=== PATIENT | female | born 1985 | race Caucasian/White ===

== ENCOUNTER → 2016-12-01 | Outpatient (CLI) | payer MEDICAID | LOC: LAB 13:48 | DX: N76.4 Abscess of vulva (principal) ==

== ENCOUNTER 2017-01-11 10:58 | Inpatient (IN) | payer MEDICAID ==
[~2017-01-11] VITALS: Ht 162.6 cm; Wt 117.0 kg
[~2017-01-11 10:58] MED LIST: AVPAK AZITHROM250 MG PO; KEFLEX 500MG.500 MG PO; OMNICEF 300 MG300 MG PO; PREDNISONE20 MG PO; PROMETHAZINE D180 ML PO; TYLENOL W/CODEI1 TA2 PO; ZITHROMAX Z-PA250 M1 PO
--- OUTSIDE RECORDS SUMMARY | 2017-01-11 11:04 | External Medical Summary Rpt | CCD ---
Author Author , JENNY Organization JENNY Address Unknown Phone [email or web address] Purpose Continuity of Care Document - 12-18-2011 through 2016 Results Labs Lab Lab Date Result Refere Interp Status Commen Order Detail nces retati t Range on Basic metabolic panel (01-02-2017 11:40) Serum 01-02-2 = 3.9 3.5-5.1 complet potassi 017 mmoL/L ed um 11:40 measure ment Serum = 94 74-106 complet or 017 mg/dL ed plasma 11:40 glucose measure ment (mas Estimat = 97 59- complet ed 017 ML/MIN ed glomeru 11:40 lar filtrat ion rate (GF Comment: REFERENCE RANGE: >60 ML/MIN/1.73 SQUARE METERS Comment: If this patient is -Citizen Of The [place], then multiply the Comment: result by 1.210. Serum 2 = 0.7 0.55-1. complet or 017 mg/dL 02 ed plasma 11:40 creatin ine measure ment ( Carbon 2 = 27 21.0-32 complet dioxide 017 mmoL/L .0 ed 11:40 measure ment Serum 2 = 103 98-107 complet or 017 mmoL/L ed plasma 11:40 chlorid e measure ment (mo Serum 01-02-2 = 8.7 8.5-10. complet or 017 mg/dL 1 ed plasma 11:40 calcium measure ment (mas Serum 01-02-2 = 6 7-18 complet or 017 mg/dL ed plasma 11:40 urea nitroge n measure men Serum = 137 136-145 complet sodium 017 mmoL/L ed measure 11:40 ment CBC W DIFF AUTOMATED (12-23-2011 06:31) Manual NOT complet Diff 012 INDICAT ed 06:31 ED BA# 12-22-2 0.04 0.00 - complet 012 K/uL 0.20 ed 06:31 EO# 10-20-2 0.42 0.00 - complet 012 K/uL 0.70 ed 06:31 NE# 10-20-2 3.68 2.00 - complet 012 K/uL 6.90 ed 06:31 MO# 10-20-2 0.44 0.00 - complet 012 K/uL 0.90 ed 06:31 LY# 10-20-2 3.89 0.60 - Above complet 012 K/uL 3.40 high ed 06:31 normal BA% 10-20-2 0.50 % 0.00 - complet 012 2.50 ed 06:31 EO% 10-20-2 5.00 % 0.00 - complet 012 7.00 ed 06:31 NE% 10-20-2 43.4 % 37.0 - complet 012 80.0 ed 06:31 MO% 10-20-2 5.2 % 0.0 - complet 012 12.0 ed 06:31 LY% 10-20-2 45.9 % 10.0 - complet 012 50.0 ed 06:31 PLT 10-20-2 196 142 - complet 012 K/uL 424 ed 06:31 RDW 10-20-2 12.1 % 11.60 - complet 012 14.80 ed 06:31 MCHC 10-20-2 34.0 31.80 - complet 012 g/dL 35.40 ed 06:31 MCH 10-20-2 32.0 pg 27.0 - Above complet 012 31.20 high ed 06:31 normal MCV 10-20-2 94.3 fL 80.0 - complet 012 97.0 ed 06:31 HCT 10-20-2 41 % 37.70 - complet 012 53.70 ed 06:31 HGB 10-20-2 14.0 12.20 - complet 012 g/dL 18.10 ed 06:31 RBC 10-20-2 4.37 4.04 - complet 012 M/uL 6.13 ed 06:31 WBC 10-20-2 8.5 4.60 - complet 012 K/uL 10.20 ed 06:31 CBC W DIFF AUTOMATED (12-23-2011 06:31) Leukocy 10-20-2 8.5 4.60 - complet emiliana 012 K/uL 10.20 ed [#/volu 06:31 me] in Blood by Automat ed count Erythro 10-20-2 4.37 4.04 - complet cytes 012 M/uL 6.13 ed [#/volu 06:31 me] in Blood by Automat ed count Hemoglo 12-22- 14.0 12.20 - complet bin 012 g/dL 18.10 ed [Mass/v 06:31 olume] in Blood Hematoc 12-22- 41 % 37.70 - complet rit 012 53.70 ed [Volume 06:31 Fractio n] of Blood by Automat ed count Erythro 94.3 fL 80.0 - complet cyte 012 97.0 ed mean 06:31 corpusc ular volume [Entiti c volume] by Automat ed count Erythro 32.0 pg 27.0 - High complet cyte 012 31.20 ed mean 06:31 corpusc ular hemoglo bin [Entiti c mass] by Automat ed count Erythro 34.0 31.80 - complet cyte 012 g/dL 35.40 ed mean 06:31 corpusc ular hemoglo bin concent ration [Mass/v olume] by Automat ed count Erythro 12.1 % 11.60 - complet cyte 012 14.80 ed distrib 06:31 ution width [Ratio] by Automat ed count Platele 196 142 - complet ts 012 K/uL 424 ed [#/volu 06:31 me] in Blood by Automat ed count Lymphoc 45.9 % 10.0 - complet ytes/10 012 50.0 ed 0 06:31 leukocy emiliana in Blood by Automat ed count Monocyt 5.2 % 0.0 - complet es/100 012 12.0 ed leukocy 06:31 emiliana in Blood by Automat ed count Neutrop 43.4 % 37.0 - complet hils.ba 012 80.0 ed nd 06:31 form/10 0 leukocy emiliana in Blood by Manual count Eosinop 5.00 % 0.00 - complet hils/10 012 7.00 ed 0 06:31 leukocy emiliana in Blood by Automat ed count Basophi 0.50 % 0.00 - complet ls/100 012 2.50 ed leukocy 06:31 emiliana in Blood by Automat ed count Lymphoc 3.89 0.60 - High complet ytes/10 012 K/uL 3.40 ed 0 06:31 leukocy emiliana in Blood by Automat ed count Monocyt 0.44 0.00 - complet es/100 012 K/uL 0.90 ed leukocy 06:31 emiliana in Blood by Automat ed count Neutrop 3.68 2.00 - complet hils.ba 012 K/uL 6.90 ed nd 06:31 form/10 0 leukocy emiliana in Blood by Manual count Eosinop 0.42 0.00 - complet hils/10 012 K/uL 0.70 ed 0 06:31 leukocy emiliana in Blood by Automat ed count Basophi 0.04 0.00 - complet ls/100 012 K/uL 0.20 ed leukocy 06:31 emiliana in Blood by Automat ed count Manual NOT complet Diff 012 INDICAT ed 06:31 ED VANCOMYCIN TROUGH (12-21-2011 12:20) POTENTI complet 012 ALLY ed 12:20 TOXIC RANGE: >60.0 ug/mL Peak: complet 012 25.0-40 ed 12:20 .0 ug/mL Trough: complet 012 ed 12:20 0.0-20. 0 ug/mL Therape complet 012 utic ed 12:20 range: LAST complet 012 DOSE ed 12:20 DATE/TI ME ____ VANCOMY 14.0 1.0 - complet SHANDRA TR 012 ug/mL 20.0 ed 12:20 VANCOMYCIN TROUGH (12-21-2011 12:20) VANCOMY 14.0 1.0 - complet SHANDRA TR 012 ug/mL 20.0 ed 12:20 LAST complet 012 DOSE ed 12:20 DATE/TI ME ____ Therape complet 012 utic ed 12:20 range: 10-18-2 Trough: complet 012 ed 12:20 0.0-20. 0 ug/mL 10-18-2 Peak: complet 012 25.0-40 ed 12:20 .0 ug/mL 10-18-2 POTENTI complet 012 ALLY ed 12:20 TOXIC RANGE: >60.0 ug/mL CBC W DIFF AUTOMATED (12-21-2011 06:00) Manual 10-18-2 NOT complet Diff 012 INDICAT ed 06:00 ED BA# 10-18-2 0.05 0.00 - complet 012 K/uL 0.20 ed 06:00 EO# 10-18-2 0.53 0.00 - complet 012 K/uL 0.70 ed 06:00 NE# 10-18-2 4.13 2.00 - complet 012 K/uL 6.90 ed 06:00 MO# 10-18-2 0.59 0.00 - complet 012 K/uL 0.90 ed 06:00 LY# 10-18-2 3.96 0.60 - Above complet 012 K/uL 3.40 high ed 06:00 normal BA% 10-18-2 0.50 % 0.00 - complet 012 2.50 ed 06:00 EO% 10-18-2 5.70 % 0.00 - complet 012 7.00 ed 06:00 NE% 10-18-2 44.6 % 37.0 - complet 012 80.0 ed 06:00 MO% 10-18-2 6.4 % 0.0 - complet 012 12.0 ed 06:00 LY% 10-18-2 42.8 % 10.0 - complet 012 50.0 ed 06:00 PLT 10-18-2 209 142 - complet 012 K/uL 424 ed 06:00 RDW 10-18-2 12.1 % 11.60 - complet 012 14.80 ed 06:00 MCHC 10-18-2 33.9 31.80 - complet 012 g/dL 35.40 ed 06:00 MCH 10-18-2 31.8 pg 27.0 - Above complet 012 31.20 high ed 06:00 normal MCV 10-18-2 93.9 fL 80.0 - complet 012 97.0 ed 06:00 HCT 10-18-2 43 % 37.70 - complet 012 53.70 ed 06:00 HGB 10-18-2 14.7 12.20 - complet 012 g/dL 18.10 ed 06:00 RBC 4.62 4.04 - complet 012 M/uL 6.13 ed 06:00 WBC 9.3 4.60 - complet 012 K/uL 10.20 ed 06:00 CBC W DIFF AUTOMATED (12-21-2011 06:00) Leukocy 9.3 4.60 - complet emiliana 012 K/uL 10.20 ed [#/volu 06:00 me] in Blood by Automat ed count Erythro 4.62 4.04 - complet cytes 012 M/uL 6.13 ed [#/volu 06:00 me] in Blood by Automat ed count Hemoglo 14.7 12.20 - complet bin 012 g/dL 18.10 ed [Mass/v 06:00 olume] in Blood Hematoc 43 % 37.70 - complet rit 012 53.70 ed [Volume 06:00 Fractio n] of Blood by Automat ed count Erythro 93.9 fL 80.0 - complet cyte 012 97.0 ed mean 06:00 corpusc ular volume [Entiti c volume] by Automat ed count Erythro 31.8 pg 27.0 - High complet cyte 012 31.20 ed mean 06:00 corpusc ular hemoglo bin [Entiti c mass] by Automat ed count Erythro 33.9 31.80 - complet cyte 012 g/dL 35.40 ed mean 06:00 corpusc ular hemoglo bin concent ration [Mass/v olume] by Automat ed count Erythro 12.1 % 11.60 - complet cyte 012 14.80 ed distrib 06:00 ution width [Ratio] by Automat ed count Platele 209 142 - complet ts 012 K/uL 424 ed [#/volu 06:00 me] in Blood by Automat ed count Lymphoc 42.8 % 10.0 - complet ytes/10 012 50.0 ed 0 06:00 leukocy emiliana in Blood by Automat ed count Monocyt 6.4 % 0.0 - complet es/100 012 12.0 ed leukocy 06:00 emiliana in Blood by Automat ed count Neutrop 44.6 % 37.0 - complet hils.ba 012 80.0 ed nd 06:00 form/10 0 leukocy emiliana in Blood by Manual count Eosinop 5.70 % 0.00 - complet hils/10 012 7.00 ed 0 06:00 leukocy emiliana in Blood by Automat ed count Basophi 0.50 % 0.00 - complet ls/100 012 2.50 ed leukocy 06:00 emiliana in Blood by Automat ed count Lymphoc 3.96 0.60 - High complet ytes/10 012 K/uL 3.40 ed 0 06:00 leukocy emiliana in Blood by Automat ed count Monocyt 0.59 0.00 - complet es/100 012 K/uL 0.90 ed leukocy 06:00 emiliana in Blood by Automat ed count Neutrop 4.13 2.00 - complet hils.ba 012 K/uL 6.90 ed nd 06:00 form/10 0 leukocy emiliana in Blood by Manual count Eosinop 0.53 0.00 - complet hils/10 012 K/uL 0.70 ed 0 06:00 leukocy emiliana in Blood by Automat ed count Basophi 0.05 0.00 - complet ls/100 012 K/uL 0.20 ed leukocy 06:00 emiliana in Blood by Automat ed count Manual NOT complet Diff 012 INDICAT ed 06:00 ED VANCOMYCIN TROUGH (12-19-2011 14:30) POTENTI complet 012 ALLY ed 14:30 TOXIC RANGE: >60.0 ug/mL Peak: complet 012 25.0-40 ed 14:30 .0 ug/mL Trough: complet 012 ed 14:30 0.0-20. 0 ug/mL Therape complet 012 utic ed 14:30 range: LAST complet 012 DOSE ed 14:30 DATE/TI ME ____ VANCOMY -16-2 8.5 1.0 - complet SHANDRA TR 012 ug/mL 20.0 ed 14:30 VANCOMYCIN TROUGH (12-19-2011 14:30) VANCOMY -16-2 8.5 1.0 - complet SHANDRA TR 012 ug/mL 20.0 ed 14:30 12-18-2 LAST complet 012 DOSE ed 14:30 DATE/TI ME ____ 12-18-2 Therape complet 012 utic ed 14:30 range: Trough: complet 012 ed 14:30 0.0-20. 0 ug/mL Peak: complet 012 25.0-40 ed 14:30 .0 ug/mL 12-18- POTENTI complet 012 ALLY ed 14:30 TOXIC RANGE: >60.0 ug/mL CBC W DIFF AUTOMATED (12-19-2011 06:10) Manual NOT complet Diff 012 INDICAT ed 06:10 ED BA# 10-16-2 0.03 0.00 - complet 012 K/uL 0.20 ed 06:10 EO# 10-16-2 0.49 0.00 - complet 012 K/uL 0.70 ed 06:10 NE# 10-16-2 4.81 2.00 - complet 012 K/uL 6.90 ed 06:10 MO# 10-16-2 0.59 0.00 - complet 012 K/uL 0.90 ed 06:10 LY# 10-16-2 3.72 0.60 - Above complet 012 K/uL 3.40 high ed 06:10 normal BA% 16-2 0.30 % 0.00 - complet 012 2.50 ed 06:10 EO% 10-16-2 5.10 % 0.00 - complet 012 7.00 ed 06:10 NE% 10-16-2 49.9 % 37.0 - complet 012 80.0 ed 06:10 MO% 10-16-2 6.1 % 0.0 - complet 012 12.0 ed 06:10 LY% 10-16-2 38.6 % 10.0 - complet 012 50.0 ed 06:10 PLT 1016-2 171 142 - complet 012 K/uL 424 ed 06:10 RDW 12-18-2 12.5 % 11.60 - complet 012 14.80 ed 06:10 MCHC 12-18- 34.0 31.80 - complet 012 g/dL 35.40 ed 06:10 MCH 12-18- 32.2 pg 27.0 - Above complet 012 31.20 high ed 06:10 normal MCV 94.7 fL 80.0 - complet 012 97.0 ed 06:10 HCT 42 % 37.70 - complet 012 53.70 ed 06:10 HGB 14.1 12.20 - complet 012 g/dL 18.10 ed 06:10 RBC 4.38 4.04 - complet 012 M/uL 6.13 ed 06:10 WBC 12-18- 9.6 4.60 - complet 012 K/uL 10.20 ed 06:10 CBC W DIFF AUTOMATED (12-19-2011 06:10) Leukocy 12-18- 9.6 4.60 - complet emiliana 012 K/uL 10.20 ed [#/volu 06:10 me] in Blood by Automat ed count Erythro 12-18- 4.38 4.04 - complet cytes 012 M/uL 6.13 ed [#/volu 06:10 me] in Blood by Automat ed count Hemoglo 14.1 12.20 - complet bin 012 g/dL 18.10 ed [Mass/v 06:10 olume] in Blood Hematoc 42 % 37.70 - complet rit 012 53.70 ed [Volume 06:10 Fractio n] of Blood by Automat ed count Erythro 94.7 fL 80.0 - complet cyte 012 97.0 ed mean 06:10 corpusc ular volume [Entiti c volume] by Automat ed count Erythro 12-18- 32.2 pg 27.0 - High complet cyte 012 31.20 ed mean 06:10 corpusc ular hemoglo bin [Entiti c mass] by Automat ed count Erythro 12-18- 34.0 31.80 - complet cyte 012 g/dL 35.40 ed mean 06:10 corpusc ular hemoglo bin concent ration [Mass/v olume] by Automat ed count Erythro 12.5 % 11.60 - complet cyte 012 14.80 ed distrib 06:10 ution width [Ratio] by Automat ed count Platele 171 142 - complet ts 012 K/uL 424 ed [#/volu 06:10 me] in Blood by Automat ed count Lymphoc 38.6 % 10.0 - complet ytes/10 012 50.0 ed 0 06:10 leukocy emiliana in Blood by Automat ed count Monocyt 6.1 % 0.0 - complet es/100 012 12.0 ed leukocy 06:10 emiliana in Blood by Automat ed count Neutrop 49.9 % 37.0 - complet hils.ba 012 80.0 ed nd 06:10 form/10 0 leukocy emiliana in Blood by Manual count Eosinop 5.10 % 0.00 - complet hils/10 012 7.00 ed 0 06:10 leukocy emiliana in Blood by Automat ed count Basophi 0.30 % 0.00 - complet ls/100 012 2.50 ed leukocy 06:10 emiliana in Blood by Automat ed count Lymphoc 3.72 0.60 - High complet ytes/10 012 K/uL 3.40 ed 0 06:10 leukocy emiliana in Blood by Automat ed count Monocyt 0.59 0.00 - complet es/100 012 K/uL 0.90 ed leukocy 06:10 emiliana in Blood by Automat ed count Neutrop 4.81 2.00 - complet hils.ba 012 K/uL 6.90 ed nd 06:10 form/10 0 leukocy emiliana in Blood by Manual count Eosinop 0.49 0.00 - complet hils/10 012 K/uL 0.70 ed 0 06:10 leukocy emiliana in Blood by Automat ed count Basophi 0.03 0.00 - complet ls/100 012 K/uL 0.20 ed leukocy 06:10 emiliana in Blood by Automat ed count Manual NOT complet Diff 012 INDICAT ed 06:10 ED HCG URINE QUAL (12-18-2011 03:52) 10 HCG complet 012 serum ed 03:52 test. advisab complet 012 le, the ed 03:52 test result should be confirm ed using a quantit ative -15-2 and complet 012 tested ed 03:52 after 48 hours. If waiting 48 hours is not medical ly diagnos complet 012 is of ed 03:52 pregnan cy. A second specime n may need to be obtaine d NOTE: A complet 012 urine ed 03:52 HCG reporte d as Positiv e, <25 mIU/ml is not a definit ayan BETA 10-15-2 NEGATIV NL: complet HCG (U) 012 E ATIVE NEGATIV ed 03:52 E Choriogonadotropin ( test) [Presence] in Urine (12-18-2011 03:52) BETA -- NEGATIV NL: complet HCG (U) 012 E NEGATIV ed 03:52 E -- NOTE: A complet 012 urine ed 03:52 HCG reporte d as Positiv e, <25 mIU/ml is not a definit ayan diagnos complet 012 is of ed 03:52 pregnan cy. A second specime n may need to be obtaine d and complet 012 tested ed 03:52 after 48 hours. If waiting 48 hours is not medical ly advisab complet 012 le, the ed 03:52 test result should be confirm ed using a quantit ative HCG complet 012 serum ed 03:52 test. CULTURE BLOOD (12-18-2011 02:59) RESULT complet 012 ed 02:59 STATUS complet 012 ed 02:59 ======= complet 012 ======= ed 02:59 ======= =FOLLOW ING RESULTS REPORTE D IN ERROR== ======= ======= ======= SEND YES complet PHARM/I 012 ed C 02:59 RESULT NO complet 012 GROWTH ed 02:59 @5 D STATUS FINAL complet 012 ed 02:59 _CULTUR complet 012 E,BLOOD ed 02:59 _ complet 012 ed 02:59 COR RECTED REPORT* BASIC METABOLIC PANEL BMP (12-18-2011 02:59) *GFR complet 012 only ed 02:59 applies to adults over the age 18. -- If complet 012 patient ed 02:59 is Debbie n, multipl y GFR by 1.120. Normal complet 012 Range: ed 02:59 60 Ml/min/ 1.73 sq meters GLOMERU complet 012 LAR ed 02:59 FILTRAT ION RATE INTERPR ETATION OSMOLAL 278 - 272 - complet ITY 012 295 295 ed 02:59 BUN/CRE 12-17- 10 6 - 25 complet RATIO 012 ratio ed 02:59 CALCIUM 12-17- 9.4 8.50 - complet 012 mg/dl 10.10 ed 02:59 GFR 12-17- 60 complet 012 ml/min ed 02:59 AGE 10-15- 27 yrs complet 012 ed 02:59 CREATIN 12-17-2 0.9 0.60 - complet INE 012 mg/dl 1.30 ed 02:59 BUN 12-17- 9 mg/dl 7 - 18 complet 012 ed 02:59 GLUCOSE 12-17- 99 70 - complet 012 mg/dl 120 ed 02:59 ANION 12-17-2 13 5 - 15 complet GAP 012 mmol/L ed 02:59 TOTAL 12-17- 28 21 - 32 complet CO2 012 mmol/L ed 02:59 CHLORID 12-17- 103 98 - complet E 012 mmol/L 107 ed 02:59 POTASSI 12-17-2 3.6 3.50 - complet UM 012 mmol/L 5.10 ed 02:59 SODIUM 12-17- 140 136 - complet 012 mmol/L 145 ed 02:59 CBC W DIFF AUTOMATED (12-18-2011 02:59) Manual NOT complet Diff 012 INDICAT ed 02:59 ED BA# 10-15-2 0.02 0.00 - complet 012 K/uL 0.20 ed 02:59 EO# 10-15-2 0.47 0.00 - complet 012 K/uL 0.70 ed 02:59 NE# 10-15-2 5.12 2.00 - complet 012 K/uL 6.90 ed 02:59 MO# 10-15-2 0.65 0.00 - complet 012 K/uL 0.90 ed 02:59 LY# 10-15-2 3.58 0.60 - Above complet 012 K/uL 3.40 high ed 02:59 normal BA% 10-15-2 0.20 % 0.00 - complet 012 2.50 ed 02:59 EO% 10-15-2 4.80 % 0.00 - complet 012 7.00 ed 02:59 NE% 10-15-2 52.0 % 37.0 - complet 012 80.0 ed 02:59 MO% 10-15-2 6.6 % 0.0 - complet 012 12.0 ed 02:59 LY% 10-15-2 36.4 % 10.0 - complet 012 50.0 ed 02:59 PLT 10-15-2 179 142 - complet 012 K/uL 424 ed 02:59 RDW 10-15-2 12.5 % 11.60 - complet 012 14.80 ed 02:59 MCHC 10-15-2 34.9 31.80 - complet 012 g/dL 35.40 ed 02:59 MCH 10-15-2 32.7 pg 27.0 - Above complet 012 31.20 high ed 02:59 normal MCV 10-15-2 93.8 fL 80.0 - complet 012 97.0 ed 02:59 HCT 10-15-2 41 % 37.70 - complet 012 53.70 ed 02:59 HGB 10-15-2 14.3 12.20 - complet 012 g/dL 18.10 ed 02:59 RBC 10-15-2 4.37 4.04 - complet 012 M/uL 6.13 ed 02:59 WBC 10-15-2 9.8 4.60 - complet 012 K/uL 10.20 ed 02:59 CULTURE BLOOD (12-18-2011 02:59) 10-15-2 complet 012 ed 02:59 COR RECTED REPORT* _CULTUR complet 012 E,BLOOD ed 02:59 _ STATUS FINAL complet 012 ed 02:59 RESULT NO complet 012 GROWTH ed 02:59 @5 D SEND YES complet PHARM/I 012 ed C 02:59 ======= complet 012 ======= ed 02:59 ======= =FOLLOW ING RESULTS REPORTE D IN ERROR== ======= ======= ======= STATUS~ complet 012 PRELIMI ed 02:59 NA<-- *Previo usly reporte d in error s10.0444 .CAM. RESULT~ complet 012 NO~GROW ed 02:59 TH~@2<- - *Previo usly reporte d in error .0444 .CAM. Basic metabolic 2000 panel in Serum or Plasma (12-18-2011 02:59) Sodium 140 136 - complet [Moles/ 012 mmol/L 145 ed volume] 02:59 in Serum or Plasma Potassi 3.6 3.50 - complet um 012 mmol/L 5.10 ed [Moles/ 02:59 volume] in Serum or Plasma Chlorid 103 98 - complet e 012 mmol/L 107 ed [Moles/ 02:59 volume] in Serum or Plasma TOTAL 28 21 - 32 complet CO2 012 mmol/L ed 02:59 ANION 13 5 - 15 complet GAP 012 mmol/L ed 02:59 Glucose 99 70 - complet 012 mg/dl 120 ed [Mass/v 02:59 olume] in Serum or Plasma Urea 9 mg/dl 7 - 18 complet nitroge 012 ed n 02:59 [Mass/v olume] in Serum or Plasma Creatin 0.9 0.60 - complet ine 012 mg/dl 1.30 ed [Mass/v 02:59 olume] in Serum or Plasma AGE 10-15- 27 yrs complet 012 ed 02:59 GFR 60 complet 012 ml/min ed 02:59 Calcium 9.4 8.50 - complet 012 mg/dl 10.10 ed [Mass/v 02:59 olume] in Serum or Plasma BUN/CRE 10 6 - 25 complet RATIO 012 ratio ed 02:59 OSMOLAL 278 272 - complet ITY 012 -_295 295 ed 02:59 10 GLOMERU complet 012 LAR ed 02:59 FILTRAT ION RATE INTERPR ETATION Normal complet 012 Range: ed 02:59 60 Ml/min/ 1.73 sq meters If complet 012 patient ed 02:59 is Debbie n, multipl y GFR by 1.120. *GFR complet 012 only ed 02:59 applies to adults over the age 18. CBC W DIFF AUTOMATED (12-18-2011 02:59) Leukocy 9.8 4.60 - complet emiliana 012 K/uL 10.20 ed [#/volu 02:59 me] in Blood by Automat ed count Erythro 4.37 4.04 - complet cytes 012 M/uL 6.13 ed [#/volu 02:59 me] in Blood by Automat ed count Hemoglo 14.3 12.20 - complet bin 012 g/dL 18.10 ed [Mass/v 02:59 olume] in Blood Hematoc 41 % 37.70 - complet rit 012 53.70 ed [Volume 02:59 Fractio n] of Blood by Automat ed count Erythro 93.8 fL 80.0 - complet cyte 012 97.0 ed mean 02:59 corpusc ular volume [Entiti c volume] by Automat ed count Erythro 32.7 pg 27.0 - High complet cyte 012 31.20 ed mean 02:59 corpusc ular hemoglo bin [Entiti c mass] by Automat ed count Erythro 34.9 31.80 - complet cyte 012 g/dL 35.40 ed mean 02:59 corpusc ular hemoglo bin concent ration [Mass/v olume] by Automat ed count Erythro 12.5 % 11.60 - complet cyte 012 14.80 ed distrib 02:59 ution width [Ratio] by Automat ed count Platele 179 142 - complet ts 012 K/uL 424 ed [#/volu 02:59 me] in Blood by Automat ed count Lymphoc 36.4 % 10.0 - complet ytes/10 012 50.0 ed 0 02:59 leukocy emiliana in Blood by Automat ed count Monocyt 6.6 % 0.0 - complet es/100 012 12.0 ed leukocy 02:59 emiliana in Blood by Automat ed count Neutrop 52.0 % 37.0 - complet hils.ba 012 80.0 ed nd 02:59 form/10 0 leukocy emiliana in Blood by Manual count Eosinop 4.80 % 0.00 - complet hils/10 012 7.00 ed 0 02:59 leukocy emiliana in Blood by Automat ed count Basophi 0.20 % 0.00 - complet ls/100 012 2.50 ed leukocy 02:59 emiliana in Blood by Automat ed count Lymphoc 3.58 0.60 - High complet ytes/10 012 K/uL 3.40 ed 0 02:59 leukocy emiliana in Blood by Automat ed count Monocyt 0.65 0.00 - complet es/100 012 K/uL 0.90 ed leukocy 02:59 emiliana in Blood by Automat ed count Neutrop 5.12 2.00 - complet hils.ba 012 K/uL 6.90 ed nd 02:59 form/10 0 leukocy emiliana in Blood by Manual count Eosinop 0.47 0.00 - complet hils/10 012 K/uL 0.70 ed 0 02:59 leukocy emiliana in Blood by Automat ed count Basophi 0.02 0.00 - complet ls/100 012 K/uL 0.20 ed leukocy 02:59 emiliana in Blood by Automat ed count Manual NOT complet Diff 012 INDICAT ed 02:59 ED CULTURE BLOOD (12-18-2011 02:30) RESULT complet 012 ed 02:30 STATUS complet 012 ed 02:30 ======= complet 012 ======= ed 02:30 ======= =FOLLOW ING RESULTS REPORTE D IN ERROR== ======= ======= ======= SEND YES complet PHARM/I 012 ed C 02:30 RESULT NO complet 012 GROWTH ed 02:30 @5 D STATUS FINAL complet 012 ed 02:30 _CULTUR complet 012 E,BLOOD ed 02:30 _ complet 012 ed 02:30 COR RECTED REPORT* CULTURE BLOOD (12-18-2011 02:30) complet 012 ed 02:30 COR RECTED REPORT* _CULTUR complet 012 E,BLOOD ed 02:30 _ STATUS FINAL complet 012 ed 02:30 RESULT NO complet 012 GROWTH ed 02:30 @5 D SEND YES complet PHARM/I 012 ed C 02:30 ======= complet 012 ======= ed 02:30 ======= =FOLLOW ING RESULTS REPORTE D IN ERROR== ======= ======= ======= 10-15-2 STATUS~ complet 012 PRELIMI ed 02:30 NA<-- *Previo usly reporte d in error .0443 .CAM. RESULT~ complet 012 NO~GROW ed 02:30 TH~@2<- - *Previo usly reporte d in error 0443 .CAM.
--- OUTSIDE RECORDS SUMMARY | 2017-01-11 11:04 | External Medical Summary Rpt | CCD ---
Author Author , JENNY ALVARADO Address Unknown Phone [email or web address] Immunization Name Date Rout CVX Reac Dose Comm Prov Is Faci e tion ent ider Refu lity Give sed n Hep 07-1 8 999 Hist H191 No H191 B, 8-20 oric ped/ 02 al adol Info rmat ion - Sour ce Unsp ecif ied Hep 05-1 8 999 Hist H191 No H191 B, 3-20 oric ped/ 02 al adol Info rmat ion - Sour ce Unsp ecif ied Td 09-0 9 999 Hist H191 No H191 (wayne 7-19 oric lt), 99 al Info adso rmat rbed ion - Sour ce Unsp ecif ied Hep 09-0 43 999 Hist H191 No H191 B, 7-19 oric adul 99 al t Info rmat ion - Sour ce Unsp ecif ied
--- OUTSIDE RECORDS SUMMARY | 2017-01-11 11:04 | External Medical Summary Rpt | CCD ---
Author Author , JENNY ALVARADO Address Unknown Phone [email or web address] Immunization Name Date Rout CVX Reac Dose [...]
--- OUTSIDE RECORDS SUMMARY | 2017-01-11 11:04 | External Medical Summary Rpt | CCD ---
Author Author [employer] Organization [employer] Address Unknown Phone Unavailable Purpose Continuity of Care Document - through 2016
--- OUTSIDE RECORDS SUMMARY | 2017-01-11 11:04 | External Medical Summary Rpt | CCD ---
Author Author , JENNY Organization JENNY Address Unknown Phone [email or web address] Purpose Continuity of Care Document - 12-18-2011 [...] [employer] Comment: If this patient is -[place], then multiply the Comment: result by 1.210. [...]
--- OUTSIDE RECORDS SUMMARY | 2017-01-11 11:05 | External Medical Summary Rpt ---
Author Author FOZIAHUBER [employer]ellers, [employer] Address Unknown Phone Unavailable Results Basic metabolic panel in Blood Observa Value Referen Units Interpr Notes Date tion ce etation Range Urea 7 - 18 mg/dL Low No Jan 02 nitrogen informati 2016 [Mass/vol on in 11:40 AM ume] in source Serum or data Plasma Calcium 8.5 - mg/dL Normal No Jan 02 [Mass/vol 10.1 informati 2016 ume] in on in 11:40 AM Serum or source Plasma data Chloride 98 - 107 mmoL/L Normal No Jan 02 [Moles/vo informati 2016 lume] in on in 11:40 AM Serum or source Plasma data Carbon 21.0 - mmoL/L Normal No Jan 02 dioxide, 32.0 informati 2016 total on in 11:40 AM [Moles/vo source lume] in data Serum or Plasma Creatinin 0.55 - mg/dL Normal No Jan 02 e 1.02 informati 2016 [Mass/vol on in 11:40 AM ume] in source Serum or data Plasma Estimated 59- ML/MIN No REFERENCE Jan 02 informati RANGE: 2017 glomerula on in >60 11:40 AM r source ML/MIN/1. filtratio data 73 SQUARE n rate METERSIf (GF this patient is -A merican, then multiply theresult by 1.210. Glucose 74 - 106 mg/dL Normal No Jan 02 [Mass/vol informati 2016 ume] in on in 11:40 AM Serum or source Plasma data Potassium 3.5 - 5.1 mmoL/L Normal No Jan 02 informati 2016 [Moles/vo on in 11:40 AM lume] in source Serum or data Plasma Sodium 136 - 145 mmoL/L Normal No Jan 02 [Moles/vo informati 2016 lume] in on in 11:40 AM Serum or source Plasma data CBC W DIFF AUTOMATED Observa Value Referen Units Interpr Notes Date tion ce etation Range Leukocy 8.5 4.60 - K/uL No No Dec 22 emiliana 10.20 informa informa 2011 [#/volu tion in tion in 6:39 AM me] in source source Blood data data by Automat ed count Erythro 4.37 4.04 - M/uL No No Dec 22 cytes 6.13 informa informa 2011 [#/volu tion in tion in 6:39 AM me] in source source Blood data data by Automat ed count Hemoglo 14.0 12.20 - g/dL No No Dec 22 bin 18.10 informa informa 2012 [Mass/v tion in tion in 6:39 AM olume] source source in data data Blood Hematoc 41 37.70 - % No No Dec 22 rit 53.70 informa informa 2011 [Volume tion in tion in 6:39 AM source source Fractio data data n] of Blood by Automat ed count Erythro 94.3 80.0 - fL No No Dec 22 cyte 97.0 informa informa 2012 mean tion in tion in 6:39 AM corpusc source source ular data data volume [Entiti c volume] by Automat ed count Erythro 32.0 27.0 - pg High No Dec 22 cyte 31.20 informa 2012 mean tion in 6:39 AM corpusc source ular data hemoglo bin [Entiti c mass] by Automat ed count Erythro 34.0 31.80 - g/dL No No Dec 22 cyte 35.40 informa informa 2012 mean tion in tion in 6:39 AM corpusc source source ular data data hemoglo bin concent ration [Mass/v olume] by Automat ed count Erythro 12.1 11.60 - % No No Dec 22 cyte 14.80 informa informa 2011 distrib tion in tion in 6:39 AM ution source source width data data [Ratio] by Automat ed count Platele 196 142 - K/uL No No Dec 22 ts 424 informa informa 2011 [#/volu tion in tion in 6:39 AM me] in source source Blood data data by Automat ed count Lymphoc 45.9 10.0 - % No No Dec 22 ytes/10 50.0 informa informa 2012 0 tion in tion in 6:39 AM leukocy source source emiliana in data data Blood by Automat ed count Monocyt 5.2 0.0 - % No No Dec 20 es/100 12.0 informa informa 2012 leukocy tion in tion in 6:39 AM emiliana in source source Blood data data by Automat ed count Neutrop 43.4 37.0 - % No No Dec 20 hils.ba 80.0 informa informa 2012 nd tion in tion in 6:39 AM form/10 source source 0 data data leukocy emiilana in Blood by Manual count Eosinop 5.00 0.00 - % No No Dec 20 hils/10 7.00 informa informa 2012 0 tion in tion in 6:39 AM leukocy source source emiliana in data data Blood by Automat ed count Basophi 0.50 0.00 - % No No Dec 20 ls/100 2.50 informa informa 2012 leukocy tion in tion in 6:39 AM emiliana in source source Blood data data by Automat ed count Lymphoc 3.89 0.60 - K/uL High No Dec 20 ytes/10 3.40 informa 2012 0 tion in 6:39 AM leukocy source emiliana in data Blood by Automat ed count Monocyt 0.44 0.00 - K/uL No No Dec 20 es/100 0.90 informa informa 2012 leukocy tion in tion in 6:39 AM emiliana in source source Blood data data by Automat ed count Neutrop 3.68 2.00 - K/uL No No Dec 20 hils.ba 6.90 informa informa 2012 nd tion in tion in 6:39 AM form/10 source source 0 data data leukocy emiliana in Blood by Manual count Eosinop 0.42 0.00 - K/uL No No Dec 20 hils/10 0.70 informa informa 2012 0 tion in tion in 6:39 AM leukocy source source emiliana in data data Blood by Automat ed count Basophi 0.04 0.00 - K/uL No No Dec 20 ls/100 0.20 informa informa 2012 leukocy tion in tion in 6:39 AM emiliana in source source Blood data data by Automat ed count Manual NOT No No No No Dec 20 Diff INDICAT informa informa informa informa 2012 ED tion in tion in tion in tion in 6:39 AM source source source source data data data data VANCOMYCIN TROUGH Observa Value Referen Units Interpr Notes Date tion ce etation Range VANCOMY 14.0 1.0 - ug/mL No No Dec 20 SHANDRA TR 20.0 informa informa 2011 tion in tion in 12:48 source source PM data data LAST No No No No Dec 20 DOSE informa informa informa informa 2011 DATE/TI tion in tion in tion in tion in 12:48 ME source source source source PM data data data data ____ Therape No No No No Dec 20 utic informa informa informa informa 2011 range: tion in tion in tion in tion in 12:48 source source source source PM data data data data Trough: No No No No Dec 20 informa informa informa informa 2011 tion in tion in tion in tion in 12:48 source source source source PM 0.0-20. data data data data 0 ug/mL Peak: No No No No Dec 20 informa informa informa informa 2011 tion in tion in tion in tion in 12:48 25.0-40 source source source source PM .0 data data data data ug/mL POTENTI No No No No Dec 20 ALLY informa informa informa informa 2011 TOXIC tion in tion in tion in tion in 12:48 RANGE: source source source source PM >60.0 data data data data ug/mL CBC W DIFF AUTOMATED Observa Value Referen Units Interpr Notes Date tion ce etation Range Leukocy 9.3 4.60 - K/uL No No Dec 21 emilaina 10.20 informa informa 2011 [#/volu tion in tion in 6:45 AM me] in source source Blood data data by Automat ed count Erythro 4.62 4.04 - M/uL No No Dec 21 cytes 6.13 informa informa 2011 [#/volu tion in tion in 6:45 AM me] in source source Blood data data by Automat ed count Hemoglo 14.7 12.20 - g/dL No No Dec 21 bin 18.10 informa informa 2011 [Mass/v tion in tion in 6:45 AM olume] source source in data data Blood Hematoc 43 37.70 - % No No Dec 21 rit 53.70 informa informa 2011 [Volume tion in tion in 6:45 AM source source Fractio data data n] of Blood by Automat ed count Erythro 93.9 80.0 - fL No No Dec 21 cyte 97.0 informa informa 2012 mean tion in tion in 6:45 AM corpusc source source ular data data volume [Entiti c volume] by Automat ed count Erythro 31.8 27.0 - pg High No Dec 21 cyte 31.20 informa 2012 mean tion in 6:45 AM corpusc source ular data hemoglo bin [Entiti c mass] by Automat ed count Erythro 33.9 31.80 - g/dL No No Dec 21 cyte 35.40 informa informa 2012 mean tion in tion in 6:45 AM corpusc source source ular data data hemoglo bin concent ration [Mass/v olume] by Automat ed count Erythro 12.1 11.60 - % No No Dec 21 cyte 14.80 informa informa 2012 distrib tion in tion in 6:45 AM ution source source width data data [Ratio] by Automat ed count Platele 209 142 - K/uL No No Dec 21 ts 424 informa informa 2012 [#/volu tion in tion in 6:45 AM me] in source source Blood data data by Automat ed count Lymphoc 42.8 10.0 - % No No Dec 21 ytes/10 50.0 informa informa 2012 0 tion in tion in 6:45 AM leukocy source source emiliana in data data Blood by Automat ed count Monocyt 6.4 0.0 - % No No Dec 21 es/100 12.0 informa informa 2012 leukocy tion in tion in 6:45 AM emiliana in source source Blood data data by Automat ed count Neutrop 44.6 37.0 - % No No Dec 21 hils.ba 80.0 informa informa 2012 nd tion in tion in 6:45 AM form/10 source source 0 data data leukocy emiliana in Blood by Manual count Eosinop 5.70 0.00 - % No No Dec 21 hils/10 7.00 informa informa 2012 0 tion in tion in 6:45 AM leukocy source source emiliana in data data Blood by Automat ed count Basophi 0.50 0.00 - % No No Dec 21 ls/100 2.50 informa informa 2012 leukocy tion in tion in 6:45 AM emiliana in source source Blood data data by Automat ed count Lymphoc 3.96 0.60 - K/uL High No Dec 21 ytes/10 3.40 informa 2012 0 tion in 6:45 AM leukocy source emiliana in data Blood by Automat ed count Monocyt 0.59 0.00 - K/uL No No Dec 21 es/100 0.90 informa informa 2012 leukocy tion in tion in 6:45 AM emiliana in source source Blood data data by Automat ed count Neutrop 4.13 2.00 - K/uL No No Dec 21 hils.ba 6.90 informa informa 2012 nd tion in tion in 6:45 AM form/10 source source 0 data data leukocy emiliana in Blood by Manual count Eosinop 0.53 0.00 - K/uL No No Dec 21 hils/10 0.70 informa informa 2011 0 tion in tion in 6:45 AM leukocy source source emiliana in data data Blood by Automat ed count Basophi 0.05 0.00 - K/uL No No Dec 21 ls/100 0.20 informa informa 2012 leukocy tion in tion in 6:45 AM emiliana in source source Blood data data by Automat ed count Manual NOT No No No No Dec 21 Diff INDICAT informa informa informa informa 2012 ED tion in tion in tion in tion in 6:45 AM source source source source data data data data VANCOMYCIN TROUGH Observa Value Referen Units Interpr Notes Date tion ce etation Range VANCOMY 8.5 1.0 - ug/mL No No Dec 18 SHANDRA TR 20.0 informa informa 2011 tion in tion in 2:50 PM source source data data LAST No No No No Dec 18 DOSE informa informa informa informa 2012 DATE/TI tion in tion in tion in tion in 2:50 PM ME source source source source data data data data ____ Therape No No No No Dec 18 utic informa informa informa informa 2011 range: tion in tion in tion in tion in 2:50 PM source source source source data data data data Trough: No No No No Dec 18 informa informa informa informa 2011 tion in tion in tion in tion in 2:50 PM source source source source 0.0-20. data data data data 0 ug/mL Peak: No No No No Dec 18 informa informa informa informa 2011 tion in tion in tion in tion in 2:50 PM 25.0-40 source source source source .0 data data data data ug/mL POTENTI No No No No Dec 18 ALLY informa informa informa informa 2011 TOXIC tion in tion in tion in tion in 2:50 PM RANGE: source source source source >60.0 data data data data ug/mL CBC W DIFF AUTOMATED Observa Value Referen Units Interpr Notes Date tion ce etation Range Leukocy 9.6 4.60 - K/uL No No Dec 18 emiliana 10.20 informa informa 2011 [#/volu tion in tion in 6:27 AM me] in source source Blood data data by Automat ed count Erythro 4.38 4.04 - M/uL No No Dec 18 cytes 6.13 informa informa 2011 [#/volu tion in tion in 6:27 AM me] in source source Blood data data by Automat ed count Hemoglo 14.1 12.20 - g/dL No No Dec 18 bin 18.10 informa informa 2011 [Mass/v tion in tion in 6:27 AM olume] source source in data data Blood Hematoc 42 37.70 - % No No Dec 18 rit 53.70 informa informa 2011 [Volume tion in tion in 6:27 AM source source Fractio data data n] of Blood by Automat ed count Erythro 94.7 80.0 - fL No No Dec 18 cyte 97.0 informa informa 2011 mean tion in tion in 6:27 AM corpusc source source ular data data volume [Entiti c volume] by Automat ed count Erythro 32.2 27.0 - pg High No Dec 18 cyte 31.20 informa 2012 mean tion in 6:27 AM corpusc source ular data hemoglo bin [Entiti c mass] by Automat ed count Erythro 34.0 31.80 - g/dL No No Dec 18 cyte 35.40 informa informa 2012 mean tion in tion in 6:27 AM corpusc source source ular data data hemoglo bin concent ration [Mass/v olume] by Automat ed count Erythro 12.5 11.60 - % No No Dec 18 cyte 14.80 informa informa 2012 distrib tion in tion in 6:27 AM ution source source width data data [Ratio] by Automat ed count Platele 171 142 - K/uL No No Dec 18 ts 424 informa informa 2012 [#/volu tion in tion in 6:27 AM me] in source source Blood data data by Automat ed count Lymphoc 38.6 10.0 - % No No Dec 18 ytes/10 50.0 informa informa 2012 0 tion in tion in 6:27 AM leukocy source source emiliana in data data Blood by Automat ed count Monocyt 6.1 0.0 - % No No Dec 18 es/100 12.0 informa informa 2012 leukocy tion in tion in 6:27 AM emiliana in source source Blood data data by Automat ed count Neutrop 49.9 37.0 - % No No Dec 18 hils.ba 80.0 informa informa 2012 nd tion in tion in 6:27 AM form/10 source source 0 data data leukocy emiliana in Blood by Manual count Eosinop 5.10 0.00 - % No No Dec 18 hils/10 7.00 informa informa 2012 0 tion in tion in 6:27 AM leukocy source source emiliana in data data Blood by Automat ed count Basophi 0.30 0.00 - % No No Dec 18 ls/100 2.50 informa informa 2012 leukocy tion in tion in 6:27 AM emiliana in source source Blood data data by Automat ed count Lymphoc 3.72 0.60 - K/uL High No Dec 18 ytes/10 3.40 informa 2012 0 tion in 6:27 AM leukocy source emiliana in data Blood by Automat ed count Monocyt 0.59 0.00 - K/uL No No Dec 18 es/100 0.90 informa informa 2011 leukocy tion in tion in 6:27 AM emiliana in source source Blood data data by Automat ed count Neutrop 4.81 2.00 - K/uL No No Dec 18 hils.ba 6.90 informa informa 2011 nd tion in tion in 6:27 AM form/10 source source 0 data data leukocy emiliana in Blood by Manual count Eosinop 0.49 0.00 - K/uL No No Dec 18 hils/10 0.70 informa informa 2012 0 tion in tion in 6:27 AM leukocy source source emiliana in data data Blood by Automat ed count Basophi 0.03 0.00 - K/uL No No Dec 18 ls/100 0.20 informa informa 2011 leukocy tion in tion in 6:27 AM emiliana in source source Blood data data by Automat ed count Manual NOT No No No No Dec 18 Diff INDICAT informa informa informa informa 2012 ED tion in tion in tion in tion in 6:27 AM source source source source data data data data Choriogonadotropin ( test) [Presence] in Urine Observa Value Referen Units Interpr Notes Date tion ce etation Range BETA NEGATIV NL: ATIVE No No Dec 17 HCG (U) E NEGATIV informa informa 2011 E tion in tion in 4:10 AM source source data data NOTE: No No No No Dec 17 A urine informa informa informa informa 2012 HCG tion in tion in tion in tion in 4:10 AM reporte source source source source d as data data data data Positiv e, <25 mIU/ml is not a definit ayan diagnos No No No No Dec 17 is of informa informa informa informa 2011 pregnan tion in tion in tion in tion in 4:10 AM cy. A source source source source second data data data data specime n may need to be obtaine d and No No No No Dec 17 tested informa informa informa informa 2012 after tion in tion in tion in tion in 4:10 AM 48 source source source source hours. data data data data If waiting 48 hours is not medical ly advisab No No No No Dec 17 le, the informa informa informa informa 2012 test tion in tion in tion in tion in 4:10 AM result source source source source should data data data data be confirm ed using a quantit ative HCG No No No No Dec 15 serum informa informa informa informa 2012 test. tion in tion in tion in tion in 4:10 AM source source source source data data data data CULTURE BLOOD Observa Value Referen Units Interpr Notes Date tion ce etation Range No No No No Dec 18 informa informa informa informa 2011 tion in tion in tion in tion in 4:44 AM source source source source COR data data data data RECTED REPORT* _CULTUR No No No No Dec 18 E,BLOOD informa informa informa informa 2012 _ tion in tion in tion in tion in 4:44 AM source source source source data data data data STATUS FINAL No No No No Dec 18 informa informa informa informa 2012 tion in tion in tion in tion in 4:44 AM source source source source data data data data RESULT NO No No No No Dec 18 GROWTH informa informa informa informa 2012 @5 D tion in tion in tion in tion in 4:44 AM source source source source data data data data COMMENT No No No No No Dec 18 informa informa informa informa informa 2012 tion in tion in tion in tion in tion in 4:44 AM source source source source source data data data data data SEND YES No No No No Dec 18 PHARM/I informa informa informa informa 2012 C tion in tion in tion in tion in 4:44 AM source source source source data data data data ======= No No No No Dec 18 ======= informa informa informa informa 2011 ======= tion in tion in tion in tion in 4:44 AM =FOLLOW source source source source ING data data data data RESULTS REPORTE D IN ERROR== ======= ======= ======= STATUS~ No No No No Dec 16 PRELIMI informa informa informa informa 2011 NA<-- tion in tion in tion in tion in 4:44 AM *Previo source source source source usly data data data data reporte d in error s10.0444 .CAM. RESULT~ No No No No Dec 16 NO~GROW informa informa informa informa 2011 TH~@2<- tion in tion in tion in tion in 4:44 AM - source source source source *Previo data data data data usly reporte d in error s10.0444 .CAM. Basic metabolic 2000 panel in Serum or Plasma Observa Value Referen Units Interpr Notes Date tion ce etation Range Sodium 140 136 - mmol/L No No Dec 15 [Moles/ 145 informa informa 2011 volume] tion in tion in 3:30 AM in source source Serum data data or Plasma Potassi 3.6 3.50 - mmol/L No No Dec 15 um 5.10 informa informa 2011 [Moles/ tion in tion in 3:30 AM volume] source source in data data Serum or Plasma Chlorid 103 98 - mmol/L No No Dec 15 e 107 informa informa 2011 [Moles/ tion in tion in 3:30 AM volume] source source in data data Serum or Plasma TOTAL 28 21 - 32 mmol/L No No Dec 15 CO2 informa informa 2011 tion in tion in 3:30 AM source source data data ANION 13 5 - 15 mmol/L No No Dec 15 GAP informa informa 2011 tion in tion in 3:30 AM source source data data Glucose 99 70 - mg/dl No No Dec 15 120 informa informa 2011 [Mass/v tion in tion in 3:30 AM olume] source source in data data Serum or Plasma Urea 9 7 - 18 mg/dl No No Dec 15 nitroge informa informa 2011 n tion in tion in 3:30 AM [Mass/v source source olume] data data in Serum or Plasma Creatin 0.9 0.60 - mg/dl No No Dec 15 ine 1.30 informa informa 2011 [Mass/v tion in tion in 3:30 AM olume] source source in data data Serum or Plasma AGE 26 No yrs No No Dec 17 informa informa informa 2011 tion in tion in tion in 3:30 AM source source source data data data GFR 60 No ml/min No No Dec 17 informa informa informa 2011 tion in tion in tion in 3:30 AM source source source data data data Calcium 9.4 8.50 - mg/dl No No Dec 17 10.10 informa informa 2011 [Mass/v tion in tion in 3:30 AM olume] source source in data data Serum or Plasma BUN/CRE 10 6 - 25 ratio No No Dec 17 RATIO informa informa 2011 tion in tion in 3:30 AM source source data data OSMOLAL 278 272 - -_295 No No Dec 17 ITY 295 informa informa 2011 tion in tion in 3:30 AM source source data data GLOMERU No No No No Dec 17 LAR informa informa informa informa 2012 FILTRAT tion in tion in tion in tion in 3:30 AM ION source source source source RATE data data data data INTERPR ETATION Normal No No No No Dec 17 Range: informa informa informa informa 2012 60 tion in tion in tion in tion in 3:30 AM Ml/min/ source source source source 1.73 sq data data data data meters If No No No No Dec 17 patient informa informa informa informa 2011 is tion in tion in tion in tion in 3:30 AM source source source source data data data data Debbie n, multipl y GFR by 1.120. *GFR No No No No Dec 17 only informa informa informa informa 2011 applies tion in tion in tion in tion in 3:30 AM to source source source source adults data data data data over the age 18. CBC W DIFF AUTOMATED Observa Value Referen Units Interpr Notes Date tion ce etation Range Leukocy 9.8 4.60 - K/uL No No Dec 17 emiliana 10.20 informa informa 2011 [#/volu tion in tion in 3:28 AM me] in source source Blood data data by Automat ed count Erythro 4.37 4.04 - M/uL No No Dec 17 cytes 6.13 informa informa 2011 [#/volu tion in tion in 3:28 AM me] in source source Blood data data by Automat ed count Hemoglo 14.3 12.20 - g/dL No No Dec 17 bin 18.10 informa informa 2012 [Mass/v tion in tion in 3:28 AM olume] source source in data data Blood Hematoc 41 37.70 - % No No Dec 17 rit 53.70 informa informa 2011 [Volume tion in tion in 3:28 AM source source Fractio data data n] of Blood by Automat ed count Erythro 93.8 80.0 - fL No No Dec 17 cyte 97.0 informa informa 2011 mean tion in tion in 3:28 AM corpusc source source ular data data volume [Entiti c volume] by Automat ed count Erythro 32.7 27.0 - pg High No Dec 17 cyte 31.20 informa 2011 mean tion in 3:28 AM corpusc source ular data hemoglo bin [Entiti c mass] by Automat ed count Erythro 34.9 31.80 - g/dL No No Dec 17 cyte 35.40 informa informa 2011 mean tion in tion in 3:28 AM corpusc source source ular data data hemoglo bin concent ration [Mass/v olume] by Automat ed count Erythro 12.5 11.60 - % No No Dec 17 cyte 14.80 informa informa 2011 distrib tion in tion in 3:28 AM ution source source width data data [Ratio] by Automat ed count Platele 179 142 - K/uL No No Dec 17 ts 424 informa informa 2011 [#/volu tion in tion in 3:28 AM me] in source source Blood data data by Automat ed count Lymphoc 36.4 10.0 - % No No Dec 17 ytes/10 50.0 informa informa 2012 0 tion in tion in 3:28 AM leukocy source source emiliana in data data Blood by Automat ed count Monocyt 6.6 0.0 - % No No Dec 17 es/100 12.0 informa informa 2012 leukocy tion in tion in 3:28 AM emiliana in source source Blood data data by Automat ed count Neutrop 52.0 37.0 - % No No Dec 17 hils.ba 80.0 informa informa 2011 nd tion in tion in 3:28 AM form/10 source source 0 data data leukocy emiliana in Blood by Manual count Eosinop 4.80 0.00 - % No No Dec 15 hils/10 7.00 informa informa 2012 0 tion in tion in 3:28 AM leukocy source source emiliana in data data Blood by Automat ed count Basophi 0.20 0.00 - % No No Dec 17 ls/100 2.50 informa informa 2012 leukocy tion in tion in 3:28 AM emiliana in source source Blood data data by Automat ed count Lymphoc 3.58 0.60 - K/uL High No Dec 17 ytes/10 3.40 informa 2012 0 tion in 3:28 AM leukocy source emiliana in data Blood by Automat ed count Monocyt 0.65 0.00 - K/uL No No Dec 17 es/100 0.90 informa informa 2012 leukocy tion in tion in 3:28 AM emiliana in source source Blood data data by Automat ed count Neutrop 5.12 2.00 - K/uL No No Dec 17 hils.ba 6.90 informa informa 2012 nd tion in tion in 3:28 AM form/10 source source 0 data data leukocy emiliana in Blood by Manual count Eosinop 0.47 0.00 - K/uL No No Dec 17 hils/10 0.70 informa informa 2012 0 tion in tion in 3:28 AM leukocy source source emiliana in data data Blood by Automat ed count Basophi 0.02 0.00 - K/uL No No Dec 17 ls/100 0.20 informa informa 2012 leukocy tion in tion in 3:28 AM emiliana in source source Blood data data by Automat ed count Manual NOT No No No No Dec 17 Diff INDICAT informa informa informa informa 2012 ED tion in tion in tion in tion in 3:28 AM source source source source data data data data CULTURE BLOOD Observa Value Referen Units Interpr Notes Date tion ce etation Range No No No No Dec 18 informa informa informa informa 2011 tion in tion in tion in tion in 4:43 AM source source source source COR data data data data RECTED REPORT* _CULTUR No No No No Dec 16 E,BLOOD informa informa informa informa 2012 _ tion in tion in tion in tion in 4:43 AM source source source source data data data data STATUS FINAL No No No No Dec 18 informa informa informa informa 2012 tion in tion in tion in tion in 4:43 AM source source source source data data data data RESULT NO No No No No Dec 18 GROWTH informa informa informa informa 2012 @5 D tion in tion in tion in tion in 4:43 AM source source source source data data data data COMMENT No No No No No Dec 18 informa informa informa informa informa 2012 tion in tion in tion in tion in tion in 4:43 AM source source source source source data data data data data SEND YES No No No No Dec 18 PHARM/I informa informa informa informa 2012 C tion in tion in tion in tion in 4:43 AM source source source source data data data data ======= No No No No Dec 16 ======= informa informa informa informa 2012 ======= tion in tion in tion in tion in 4:43 AM =FOLLOW source source source source ING data data data data RESULTS REPORTE D IN ERROR== ======= ======= ======= STATUS~ No No No No Dec 16 PRELIMI informa informa informa informa 2012 NA<-- tion in tion in tion in tion in 4:43 AM *Previo source source source source usly data data data data reporte d in error .0443 .CAM. RESULT~ No No No No Dec 16 NO~GROW informa informa informa informa 2012 TH~@2<- tion in tion in tion in tion in 4:43 AM - source source source source *Previo data data data data usly reporte d in error s10/.0443 .CAM.
--- OUTSIDE RECORDS SUMMARY | 2017-01-11 11:05 | External Medical Summary Rpt ---
[...] 4.60 - K/uL No No Dec 21 emiliana 10.20 informa informa 2011 [#/volu tion [...]
[2017-01-11 14:42] LABS: BUN 7 mg/dL (7-18)
[2017-01-11 14:46] LABS: GFR (ESTIMATED) 83 ML/MIN (59-)
--- NOTE | 2017-01-11 15:01 | CONSULT NOTE ---
Pharmacokinetic Consult Date of consult: 01/11/17 Time of consult: 9954 Referring provider: DR. DILL Reason for consult: VANCOMYCIN DOSING Allergies: Coded Allergies: amoxicillin (From AUGMENTIN) (01/05/15) clavulanic acid (From AUGMENTIN) (01/05/15) tramadol (01/05/15) Home Medications: Active Scripts CEPHALEXIN (Keflex 500MG Capsule) 500 MG PO QID #40 CAP Prov: 12/31/16 Height (feet): 5 Height (inches): 4.00 Medical History: CAD? No Angina: No ID: No Hypertension? No Hyperlipidemia? No CHF? No DVT? No PE? No COPD? No Asthma? Yes Anemia? No GERD? No Gastric ulcers? No GI Bleed? No Hernia? No Thyroid Problems? No Hypothyroidism? No CVA? No Seizures? No Diabetes? No Insulin Dependent: No Insulin Pump: No Home FSBS? No Renal Insuffiency? No UTI? No Stones? No BPH? No GB Disease: Yes Nephritic Syndrome? No Asplenia? No Hepatitis? No Sickle Cell Disease? No Arthritis? No Migraines? No Cataracts? No Glaucoma? No MRSA? Yes HIV? No TB? No Anxiety? No Depression? No Cancer? No More? No Labs: Laboratory Tests 01/11/17 1420: Sodium 137, Potassium 3.4 L, Chloride 100, Carbon Dioxide 30, BUN 7, Creatinine 0.8, Estimated GFR (MDRD) 83, Glucose 81, Calcium 9.2, Total Bilirubin 0.3, AST 17, ALT 23, Alkaline Phosphatase 85, Total Protein 8.5 H, Albumin 4.0, Globulin 4.5 H, Albumin/Globulin Ratio 0.9 L Microbiology 01/12 1420 BLOOD: Anaerobic Blood Culture - RECD 01/12 1420 BLOOD: Aerobic Blood Culture - RECD 01/12 1420 BLOOD: Anaerobic Blood Culture - RECD 01/12 1420 BLOOD: Aerobic Blood Culture - RECD Plan: BASED ON PATIENT'S FACTORS, RECOMMEND STARTING WITH VANCOMYCIN 2 GM NOW AND THE Q12. WILL ORDER TROUGH LEVEL FOR TOMORROW NIGHT PRIOR TO 4TH DOSE. PHARMACY WILL FOLLOW DAILY AND ADJUST APPROPRIATE. JIAN GUNDERSON PHARMD at 1500
--- NOTE | 2017-01-11 15:01 | CONSULT NOTE ---
Pharmacokinetic Consult Date of consult: 01/11/17 Time of consult: 5534 Referring provider: DR. DILL Reason for consult: VANCOMYCIN DOSING Allergies: Coded Allergies: amoxicillin (From AUGMENTIN) (01/05/15) clavulanic acid (From AUGMENTIN) (01/05/15) tramadol (01/05/15) Home Medications: Active Scripts CEPHALEXIN (Keflex 500MG Capsule) 500 MG PO QID #40 CAP Prov: 12/31/16 Height (feet): 5 Height (inches): 4.00 Medical History: CAD? No Angina: No DE: No Hypertension? No Hyperlipidemia? No CHF? No DVT? No PE? No COPD? No Asthma? Yes Anemia? No GERD? No Gastric ulcers? No GI Bleed? No Hernia? No Thyroid Problems? No Hypothyroidism? No CVA? No Seizures? No Diabetes? No Insulin Dependent: No Insulin Pump: No Home FSBS? No Renal Insuffiency? No UTI? No Stones? No BPH? No GB Disease: Yes Nephritic Syndrome? No Asplenia? No Hepatitis? No Sickle Cell Disease? No Arthritis? No Migraines? No Cataracts? No Glaucoma? No MRSA? Yes HIV? No TB? No Anxiety? No Depression? No Cancer? No More? No Labs: Laboratory Tests 01/11/17 1420: Sodium 137, Potassium 3.4 L, Chloride 100, Carbon Dioxide 30, BUN 7, Creatinine 0.8, Estimated GFR (MDRD) 83, Glucose 81, Calcium 9.2, Total Bilirubin 0.3, AST 17, ALT 23, Alkaline Phosphatase 85, Total Protein 8.5 H, Albumin 4.0, Globulin 4.5 H, Albumin/Globulin Ratio 0.9 L Microbiology 01/12 1420 BLOOD: Anaerobic Blood Culture - RECD 01/12 1420 BLOOD: Aerobic Blood Culture - RECD 01/12 1420 BLOOD: Anaerobic Blood Culture - RECD 01/12 1420 BLOOD: Aerobic Blood Culture - RECD Plan: BASED ON PATIENT'S FACTORS, RECOMMEND STARTING WITH VANCOMYCIN 2 GM NOW AND THE Q12. WILL ORDER TROUGH LEVEL FOR TOMORROW NIGHT PRIOR TO 4TH DOSE. PHARMACY WILL FOLLOW DAILY AND ADJUST APPROPRIATE. JIAN GUNDRESON PHARMD at 1500
[2017-01-11 15:19] VITALS: BP 122/78; BP 140/80
[2017-01-11 15:55] VITALS: BP 122/78
[2017-01-11 19:05] VITALS: BP 122/78
[2017-01-11 20:06] VITALS: BP 111/71
[2017-01-12] VITALS (16 sets, daily range): BP systolic 94–153; BP diastolic 55–84
[2017-01-12 07:21] LABS: HEMOGLOBIN 12.8 g/dL (12.2-16.2); LYMPH # 2.8 K/mm3 (0.7-4.5); LYMPH % 38.9 % (10-50.0)
--- NOTE | 2017-01-12 07:29 | PHARMACY CLINIC NOTE ---
Patient Demographics Patient Demographics Admission date: 01/11/17 Date: 01/12/17 Time: 0729 Allergies Coded Allergies: amoxicillin (From AUGMENTIN) (01/05/15) clavulanic acid (From AUGMENTIN) (01/05/15) tramadol (01/05/15) HEIGHT- FT: 5 IN: 4.00 K.028 VTE General Information Labs: Laboratory Tests 01/12 0635 Hematology Hgb (12.2 - 16.2 g/dL) 12.8 Hct (37.0 - 47.0 %) 39.4 Plt Count (142 - 424 K/mm3) 180 Disclaimer The following section includes nursing documentation that has been pulled in for pharmacy review. Patient's VTE score: 3 Patient's VTE Risk: LOW RISK Clinical trial participant? No VTE prophylaxis NQF [id number] VTE prophylaxis ordered? Yes Type of prophylaxis/treatment: MARLEEN at 0729
--- NOTE | 2017-01-12 08:26 | ACUTE CARE PROGRESS NOTE (QUA) ---
Progress Notes Subjective Date 01/12/17 Time 0822 Patient/family reports: pain Nursing reports: alert, pain Objective Findings Laboratory Tests 01/12/17 0635: Sodium 138, Potassium 3.4 L, Chloride 104, Carbon Dioxide 28, BUN 7, Creatinine 0.7, Estimated Creat Clear 213 H, Estimated GFR (MDRD) 97, Glucose 93, Calcium 8.7, WBC 7.2, RBC 4.51, Hgb 12.8, Hct 39.4, MCV 87.3, RDW 15.2, Plt Count 180, MPV 9.8, Gran % 50.6, Gran # 3.7, Lymphocytes % 38.9, Monocytes % 5.1, Eosinophils % 5.0, Basophils % 0.5, Lymphocytes # 2.8, Monocytes # 0.4, Eosinophils # 0.4, Basophils # 0.0, PUBS MCHC 32.5, MCH 28.3 01/11/17 1420: Sodium 137, Potassium 3.4 L, Chloride 100, Carbon Dioxide 30, BUN 7, Creatinine 0.8, Estimated GFR (MDRD) 83, Glucose 81, Calcium 9.2, Total Bilirubin 0.3, AST 17, ALT 23, Alkaline Phosphatase 85, Total Protein 8.5 H, Albumin 4.0, Globulin 4.5 H, Albumin/Globulin Ratio 0.9 L Microbiology 01/12 1420 BLOOD: Anaerobic Blood Culture - RECD 01/12 1420 BLOOD: Aerobic Blood Culture - RECD 01/12 1420 BLOOD: Anaerobic Blood Culture - RECD 01/12 1420 BLOOD: Aerobic Blood Culture - RECD Vital Signs Date Time Temp Pulse Resp B/P Pulse O2 O2 Flow FiO2 Ox Delivery Rate 01/12 729 98.3 67 18 108/65 97 ROOM AIR 01/12 0423 20 01/13 420 98.2 55 20 117/71 98 ROOM AIR 01/12 0004 20 01/11 2258 20 01/11 2006 98.3 71 20 111/71 99 ROOM AIR 01/11 1937 20 01/11 1905 97.6 71 20 122/78 100 01/11 1825 20 01/11 1555 97.6 71 18 122/78 100 ROOM AIR 01/11 1545 20 01/11 1519 71 01/11 1519 97.6 71 18 122/78 01/11 1519 100 ROOM AIR 01/11 1519 97.7 86 18 140/80 99 ROOM AIR Current Medications Morphine Sulfate 0 .STK-MED ONE .ROUTE (DCr) Morphine Sulfate 0 .STK-MED ONE .ROUTE (DCr) Diphenhydramine HCl 0 .STK-MED ONE PO (DC) Hydrocodone Bitart/Acetaminophen 0 .STK-MED ONE PO (DCr) Diphenhydramine HCl 12.5 MG Q12H IV (DC) Morphine Sulfate 0 .STK-MED ONE .ROUTE (DCr) Diphenhydramine HCl 50 MG Q6HP PRN PO Morphine Sulfate 2 MG Q4HP PRN IV Diphenhydramine HCl 50 MG ONCE ONE PO (DC) Hydrocodone Bitart/Acetaminophen 1 TAB Q4HP PRN PO Hydrocodone Bitart/Acetaminophen 1 TAB ONCE ONE PO (DC) Diphenhydramine HCl 0 .STK-MED ONE PO (DC) Hydrocodone Bitart/Acetaminophen 0 .STK-MED ONE PO (DCr) Diphenhydramine HCl 0 .STK-MED ONE .ROUTE (DC) Hydrocodone Bitart/Acetaminophen 1 TAB BIDP PRN PO (DC) Hydrocodone Bitart/Acetaminophen 0 .STK-MED ONE PO (DCr) Vancomycin HCl 2,000 MG Q12 IV Sodium Chloride 250 ML Vancomycin HCl 1,000 MG Q12 IV (CAN) Sodium Chloride 250 ML Acetaminophen 650 MG Q4HP PRN PO Influenza Virus Vaccine Quadrival 0.5 ML PRN PRN IM Nicotine 21 MG DAILYP PRN TD Sodium Chloride 10 ML PRN PRN IV Last VS-Temp:98.3 B/P:108/65 Pulse:67 Resp:18 SaO2:97 ROOM AIR Last weight lbs:258 oz:0 K.028 Method:Bed Scales Exam General appearance: normal appearance, active, no acute distress Eyes: normal exam ENT: normal exam Neck: normal inspection, full range of motion Cardiovascular: normal exam, regular rate & rhythm Respiratory: normal exam, aerating well, clear to auscultation, chest non- tender, good air movement, normal breath sounds, no respiratory distress ABD: normal exam, normal bowel sounds, soft Genitourinary: normal voiding & quantity, induration to rt labia Extremities: normal exam Musculoskeletal: normal exam, normal gait Skin: induration noted to the RIGHT labia redness has improved since yesterday Neuro: normal exam, alert, no deficit, oriented Reviewed: allergies, medications, vital signs, lab results, consult note Assessment/Plan Problem List 1. Abscess of right genital labia Patient condition Stable Plan: continue current care, consult surgeon This inpt stay is expected to cross 2 MNs from start of care Yes Comments: rounded with aristeo arreola in room, plan for I and D today and possible discharge home later Antibiotic Stewardship (2) Current Culture Results Microbiology 01/11 1420 BLOOD: Anaerobic Blood Culture - RECD 01/11 1420 BLOOD: Aerobic Blood Culture - RECD at 0881
--- NOTE | 2017-01-12 08:39 | CONSULT NOTE ---
Standard Demographics Patient Demo Date of Consultation: 01/12/17 Referring Provider: Viki Conteh MD Reason for Consultation: abscess of the vulva, MRSA PRIMARY DIAGNOSIS: LABIA ABSCESS Allergies: Coded Allergies: amoxicillin (From AUGMENTIN) (01/05/15) clavulanic acid (From AUGMENTIN) (01/05/15) tramadol (01/05/15) History of Present Illness Chief Complaint: Vulvar pain History of Present Illness: She was admitted last night with a vulvar abscess. She's had multiple abscesses in the past. 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 She has taken Bactrim for the last couple of months. She has also been using chlorine and her bath and clean the area with Hibiclens. Past Medical History Denies: CAD, congestive heart failure, COPD, hypertension, peptic ulcer disease. Surgical History Previous Surgery?Y C-sectionX3 GALLBLADDER ABSCESS REMOVAL X35 TUBAL Allergies Coded Allergies: amoxicillin (From AUGMENTIN) (01/05/15) clavulanic acid (From AUGMENTIN) (01/05/15) tramadol (01/05/15) Medications: Reported Medications No Known Home Medications Family history Negative for: unknown. Smoking Hx Tobacco: Yes Smoker: Current Every Day Smoker Type: Cigarettes Packs/day: 1 1/2 - 2 Packs Are you/the child exposed to second-hand smoke: Yes Alcohol Alcohol: No Hx of Drug Use Drug Use? No Patien't marital status is single Patient's support system is good Review of Systems Constitutional No: chills. Skin No: abrasions, bruising. Immune/allergy No: hives. Eyes No: blurry vision. ENT No: ear ache. Respiratory No: dyspnea on exertion. Cardiovascular No: chest pain. GI No: diarrhea. (female) No: vaginal discharge. Musculoskeletal No: joint swelling. Heme No: bleeding. Endocrine No: cold intolerance. Neurological No: change in LOC. Psychiatric No: agitation. Physical Exam VS/I&O Vital Signs Date Time Temp Pulse Resp B/P Pulse O2 O2 Flow FiO2 Ox Delivery Rate 01/12 729 98.3 67 18 108/65 97 ROOM AIR 01/12 423 20 01/13 420 98.2 55 20 117/71 98 ROOM AIR 01/12 0004 20 01/118 20 01/11 2006 98.3 71 20 111/71 99 ROOM AIR 01/11 1937 20 01/11 1905 97.6 71 20 122/78 100 01/11 1825 20 01/11 1555 97.6 71 18 122/78 100 ROOM AIR 01/11 1545 20 01/11 1519 71 01/11 1519 97.6 71 18 122/78 01/11 1519 100 ROOM AIR 01/11 1519 97.7 86 18 140/80 99 ROOM AIR I&O 01/12 0700 Intake Total 240 Output Total Balance 240 Intake, Oral 240 Patient 258 lb Weight Exam General appearance no acute distress, alert, oriented Neck full ROM Respiratory clear to auscultation Cardiovascular normal heart sounds Abdomen flat, no distention Abdomen quadrants normal bowel sounds Genitourinary (female) vulvar lesion (2 cm abscess on RIGHT labia) Musculoskeletal full ROM Neurological normal speech Psychiatric normal affect Skin abcess location (RIGHT vulva) Results no new labs Plan Plan: She has a 2 cm abscess on the RIGHT vulva. She is receiving vancomycin. We will go ahead with an incision and drainage of the abscess. I discussed the risks of surgery that includes bleeding, infection, injuries to adjacent structures. All questions were answered and consents were signed. She will continue nothing by mouth. at 0839
--- NOTE | 2017-01-12 13:48 | Operative Note ---
Procedure/Operative Record Procedure Date of procedure: 01/12/17 Pre-Op Dx: Labial abscess, MRSA Post-Op Dx: Labia abscess, MRSA Procedure performed: Incision and drainage of labial abscess Surgeon: Dr. Claudio Agudelo Bereavement Coordinator(s): None Anesthesia: Warner Gomez EBL (ml): 25 Clinical note: She is a 31-year-old lady who complains of pain in the RIGHT labia. She has a previous history of labial abscesses and MRSA. She has been treated with sitz baths and chlorine, Hibiclens and Bactrim for the last couple of months. She has most recently been admitted with this RIGHT labial abscess and started on IV vancomycin Operative findings: She had a 3 cm indurated area on the RIGHT labia. It was filled with approximately 2 mL of thick yellow pus. Operative note: She was taken to the operating room where LMA anesthesia was found be adequate. She was prepped and draped in normal sterile fashion in the lithotomy position. Using a number 15 blade I opened up the abscess and drained thick pus from the abscess. Aerobic and anaerobic cultures were sent. The abscess cavity was then further opened with a hemostat. I then cleaned the abscess cavity with Hibiclens soaked Q-tips. The cavity itself was only about a centimeter by a centimeter in size. I then injected 1 mL of 2 percent Xylocaine with epinephrine mixed 50/50 with 0.5 percent ropivacaine. She tolerated the procedure well and was taken to the recovery room in excellent condition. All sponge and cement counts were correct. Estimated blood loss was less than 25 mL. Conplications: None Specimens: Aerobic and anaerobic Wound cultures at 7018
--- NOTE | 2017-01-12 14:06 | Anesthesia Record ---
Anesthesia Record Part I Total IV fluids: 300 EBL (ml): 25 Urine Output: 0 Units of blood given: 0 B/P: 120/81 % SaO2: 97 Pulse: 65 Resps: 10 Temp: 97.2 Patient is: Awake, Stable Stable to PACU at: 1357 at 1406
--- NOTE | 2017-01-12 14:06 | Anesthesia Record ---
Anesthesia Record Part II Discharge time: 1427 Destination: Second Floor PACU nurse assessment review? Yes Patient is: Awake, Stable Anesthesia complications? No at 1403
--- NOTE | 2017-01-12 17:55 | HISTORY AND PHYSICAL REPORT ---
Demographics: Admit date: 01/11/17 Chief complaint: labia abcess PRIMARY DIAGNOSIS: LABIA ABSCESS Allergies: Coded Allergies: amoxicillin (From AUGMENTIN) (01/12/17) clavulanic acid (From AUGMENTIN) (01/12/17) tramadol (01/12/17) History of present illness: History of present illness: 31-year-old female was seen in the office yesterday with an abscess to the labia. Patient states she is on Bactrim for an abscess on her eye. Patient states for the last 2 days this abscess has gotten bigger and hurts. Patient admitted for IV antibiotics consult [facility] for possible I and D. Past medical history: Family HX Diabetes No CAD No Hypertension No Hyperlipidemia No Cancer No TB No Immunization HX DT/Tetanus 1-4 Years Ago Flu REFUSES Pneumonia REFUSES TB Test in last year No General CAD? No Angina: No [place]: No Hypertension? No Hyperlipidemia? No CHF? No DVT? No PE? No COPD? No Asthma? Yes Anemia? No GERD? No Gastric ulcers? No GI Bleed? No Hernia? No Thyroid Problems? No Hypothyroidism? No CVA? No Seizures? No Diabetes? No Insulin Dependent: No Insulin Pump: No Home FSBS? No Renal Insuffiency? No UTI? No Stones? No BPH? No GB Disease: Yes Nephritic Syndrome? No Asplenia? No Hepatitis? No Sickle Cell Disease? No Arthritis? No Migraines? No Cataracts? No Glaucoma? No MRSA? Yes HIV? No TB? No Anxiety? No Depression? No Cancer? No More? Yes Additional hx: MULTIPLE MRSA ABSCESSES Past Surgical HX Previous Surgery?Y C-sectionX3 GALLBLADDER ABSCESS REMOVAL X35 TUBAL Current home meds: Reported Medications No Known Home Medications Social Hx: Smoking HX Tobacco Yes Type Cigarettes Packs/day 1 1/2 - 2 PACKS Are you/the child exposed to second-hand smoke: Yes Alcohol Alcohol: No Hx of Drug Use Drug Use? No Review of systems: Constitutional No: no symptoms reported. Respiratory No: no symptoms reported. Cardiovascular No no symptoms reported Gastrointestinal/Abdominal No no symptoms reported Genitourinary No: no symptoms reported. Musculoskeletal No: no symptoms reported. Skin see HPI. Neurological No: see HPI. Exam: Lab data for last 24 hours: Laboratory Tests 01/12/17 0635: Sodium 138, Potassium 3.4 L, Chloride 104, Carbon Dioxide 28, BUN 7, Creatinine 0.7, Estimated Creat Clear 213 H, Estimated GFR (MDRD) 97, Glucose 93, Calcium 8.7, WBC 7.2, RBC 4.51, Hgb 12.8, Hct 39.4, MCV 87.3, RDW 15.2, Plt Count 180, MPV 9.8, Gran % 50.6, Gran # 3.7, Lymphocytes % 38.9, Monocytes % 5.1, Eosinophils % 5.0, Basophils % 0.5, Lymphocytes # 2.8, Monocytes # 0.4, Eosinophils # 0.4, Basophils # 0.0, PUBS MCHC 32.5, MCH 28.3 Microbiology 01/12 1338 LABIA: Antimicrobic Susceptibility - RECD 01/12 1338 LABIA: Anaerobic Culture Result 4 - RECD 01/12 1338 LABIA: Anaerobic Culture Result 3 - RECD 01/12 1338 LABIA: Anaerobic Culture Result 2 - RECD 01/12 1338 LABIA: Anaerobic Culture Result 1 - RECD 01/12 1338 LABIA: Anaerobic Culture - RECD 01/12 1338 LABIA: Abscess Culture - RECD 01/12 1338 VAGINAL: Antimicrobic Susceptibility - CAN Cancelled: Cancelled via OE: WRONG ORDER 01/12 1338 VAGINAL: Anaerobic Culture Result 4 - CAN Cancelled: Cancelled via OE: WRONG ORDER 01/12 1338 VAGINAL: Anaerobic Culture Result 3 - CAN Cancelled: Cancelled via OE: WRONG ORDER 01/12 1338 VAGINAL: Anaerobic Culture Result 2 - CAN Cancelled: Cancelled via OE: WRONG ORDER 01/12 1338 VAGINAL: Anaerobic Culture Result 1 - CAN Cancelled: Cancelled via OE: WRONG ORDER 01/12 1338 VAGINAL: Anaerobic Culture - CAN Cancelled: Cancelled via OE: WRONG ORDER 01/12 1338 VAGINAL: Abscess Culture - CAN Cancelled: Cancelled via OE: WRONG ORDER Admission vital signs: 1ST Vital Signs Result Date Time Pulse Ox 99 01/11 151 B/P 140/80 01/11 151 O2 Delivery ROOM AIR 01/11 1519 Temp 97.7 01/11 1519 Pulse 86 01/11 151 Resp 18 01/11 151 Exam General appearance: normal appearance, awake, no acute distress Eyes: normal exam ENT: normal exam Neck: normal inspection Cardiovascular: normal exam, regular rate & rhythm Respiratory: normal exam, clear to auscultation ABD: normal exam, normal bowel sounds, soft Genitourinary: normal voiding & quantity Extremities: normal exam, moves all, no peripheral edema Musculoskeletal: normal exam Skin: induration to RIGHT labia slight improvement since seen in office yesterday Neuro: normal exam, alert, intact, oriented Plan: Problem List 1. Abscess of right genital labia Plan: I and D today. Discharge as soon as Zyvox is approved at 1756
[2017-01-13] VITALS: BP 111/58
[2017-01-13 04:00] VITALS: BP 100/64
[2017-01-13 07:26] VITALS: BP 121/74
--- NOTE | 2017-01-13 09:06 | ACUTE CARE PROGRESS NOTE (QUA) ---
Progress Notes Subjective Date 01/13/17 Time 0903 Note doing better Patient/family reports: feeling better Nursing reports: no complaints Objective Findings Last VS-Temp:98.4 B/P:121/74 Pulse:63 Resp:20 SaO2:99 ROOM AIR Last weight lbs:258 oz:0 K.028 Method:Bed Scales Exam General appearance: alert Eyes: PERRLA ENT: dry mucous membranes Neck: no JVD Cardiovascular: regular rate & rhythm Respiratory: no respiratory distress ABD: no organomegaly Genitourinary: normal voiding & quantity Extremities: moves all Musculoskeletal: equal muscle strength Skin: wd not checked Neuro: alert, hot top liner II-XII nml as tested Reviewed: allergies, medications, vital signs, lab results, consult note Assessment/Plan Problem List 1. Abscess of right genital labia Patient condition Improving Plan: continue current care This inpt stay is expected to cross 2 MNs from start of care Yes Comments: will hope to d/c on po meds Antibiotic Stewardship (2) Current Culture Results Microbiology 01/12 1338 LABIA: Antimicrobic Susceptibility - RECD 01/12 1338 LABIA: Anaerobic Culture Result 4 - RECD 01/12 1338 LABIA: Anaerobic Culture Result 3 - RECD 01/12 1338 LABIA: Anaerobic Culture Result 2 - RECD 01/12 1338 LABIA: Anaerobic Culture Result 1 - RECD 01/12 1338 LABIA: Anaerobic Culture - RECD 01/12 1338 LABIA: Abscess Culture - RECD 01/12 1338 VAGINAL: Antimicrobic Susceptibility - CAN Cancelled: Cancelled via OE: WRONG ORDER 01/12 1338 VAGINAL: Anaerobic Culture Result 4 - CAN Cancelled: Cancelled via OE: WRONG ORDER 01/12 1338 VAGINAL: Anaerobic Culture Result 3 - CAN Cancelled: Cancelled via OE: WRONG ORDER 01/12 1338 VAGINAL: Anaerobic Culture Result 2 - CAN Cancelled: Cancelled via OE: WRONG ORDER 01/12 1338 VAGINAL: Anaerobic Culture Result 1 - CAN Cancelled: Cancelled via OE: WRONG ORDER 01/12 1338 VAGINAL: Anaerobic Culture - CAN Cancelled: Cancelled via OE: WRONG ORDER 01/12 1338 VAGINAL: Abscess Culture - CAN Cancelled: Cancelled via OE: WRONG ORDER 01/11 1420 BLOOD: Anaerobic Blood Culture - RECD 01/11 142 BLOOD: Aerobic Blood Culture - RECD at 0906
--- NOTE | 2017-01-13 09:18 | CONSULT NOTE ---
Pharmacokinetic Consult Date of consult: 01/13/17 Time of consult: 914 Referring provider: DR. DILL Reason for consult: VANCOMYCIN TROUGH LEVEL Allergies: Coded Allergies: amoxicillin (From AUGMENTIN) (01/12/17) clavulanic acid (From AUGMENTIN) (01/12/17) tramadol (01/12/17) Home Medications: Reported Medications No Known Home Medications Height (feet): 5 Height (inches): 4.00 Medical History: CAD? No Angina: No [place]: No Hypertension? No Hyperlipidemia? No CHF? No DVT? No PE? No COPD? No Asthma? Yes Anemia? No GERD? No Gastric ulcers? No GI Bleed? No Hernia? No Thyroid Problems? No Hypothyroidism? No CVA? No Seizures? No Diabetes? No Insulin Dependent: No Insulin Pump: No Home FSBS? No Renal Insuffiency? No UTI? No Stones? No BPH? No GB Disease: Yes Nephritic Syndrome? No Asplenia? No Hepatitis? No Sickle Cell Disease? No Arthritis? No Migraines? No Cataracts? No Glaucoma? No MRSA? Yes HIV? No TB? No Anxiety? No Depression? No Cancer? No More? Yes Additional hx: MULTIPLE MRSA ABSCESSES Labs: Laboratory Tests 01/12/172034: Vancomycin Trough 15.8 Microbiology 01/12 1338 LABIA: Antimicrobic Susceptibility - RECD 01/12 1338 LABIA: Anaerobic Culture Result 4 - RECD 01/12 1338 LABIA: Anaerobic Culture Result 3 - RECD 01/12 1338 LABIA: Anaerobic Culture Result 2 - RECD 01/12 1338 LABIA: Anaerobic Culture Result 1 - RECD 01/12 1338 LABIA: Anaerobic Culture - RECD 01/12 1338 LABIA: Abscess Culture - RECD 01/12 1338 VAGINAL: Antimicrobic Susceptibility - CAN Cancelled: Cancelled via OE: WRONG ORDER 01/12 1338 VAGINAL: Anaerobic Culture Result 4 - CAN Cancelled: Cancelled via OE: WRONG ORDER 01/12 1338 VAGINAL: Anaerobic Culture Result 3 - CAN Cancelled: Cancelled via OE: WRONG ORDER 01/12 1338 VAGINAL: Anaerobic Culture Result 2 - CAN Cancelled: Cancelled via OE: WRONG ORDER 01/12 1338 VAGINAL: Anaerobic Culture Result 1 - CAN Cancelled: Cancelled via OE: WRONG ORDER 01/12 1338 VAGINAL: Anaerobic Culture - CAN Cancelled: Cancelled via OE: WRONG ORDER 01/12 1338 VAGINAL: Abscess Culture - CAN Cancelled: Cancelled via OE: WRONG ORDER Problem List: 1. Abscess of right genital labia Plan: BASED ON PATIENT FACTORS, RECOMMEND CONTINUING VANCOMYCIN 2 GM IV Q12H. PHARMACY WILL CONTINUE TO MONITOR DAILY AND ADJUST APPROPRIATE. at 0918
[2017-01-13 11:12] VITALS: BP 121/74
[2017-01-14] MEDS ORDERED: LINEZOLID600 MG PO (12:07)
[2017-01-14] MEDS ORDERED: ROBAXIN-750750 MG PO (13:30)
--- NOTE | 2017-01-14 16:52 | DISCHARGE SUMMARY STANDARD ---
Demographics Admit date: 01/10/17 Discharge date: 01/14/17 History of present illness History of present illness 31-year-old female was seen in the office yesterday with an abscess to the labia. Patient states she is on Bactrim for an abscess on her eye. Patient states for the last 2 days this abscess has gotten bigger and hurts. 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 Hospital Course Hospital Course: Vaginal labial abscess-Dr. Julian consult for I and D. Culture prior to admission positive for MRSA patient had been on Bactrim, will discharge home on Zyvox. Follow up in the office on Sunday. Discharge diagnoses Problem List 1. Abscess of right genital labia Medications Medications: Discharge meds are as noted. Follow up Follow up in office in: 3 DAYS with: Magnus PATEL,Claudio Shaw Comment: Follow-up in the office on Sunday In follow-up with Dr. Julian on Sunday Pack wound is ordered Precautions discussed with patient at [id number]
--- NOTE | 2017-01-14 16:52 | DISCHARGE SUMMARY STANDARD ---
Demographics Admit date: 01/10/17 Discharge date: 01/14/17 History of present illness History of present illness 31-year-old female was seen in the office yesterday with an abscess to the labia. Patient states she is on Bactrim for an abscess on her eye. Patient states for the last 2 days this abscess has gotten bigger and hurts. 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 Hospital Course Hospital Course: Vaginal labial abscess-Dr. Julian consult for I and D. Culture prior to admission positive for MRSA patient had been on Bactrim, will discharge home on Zyvox. Follow up in the office on Sunday. Discharge diagnoses Problem List 1. Abscess of right genital labia Medications Medications: Discharge meds are as noted. Follow up Follow up in office in: 3 DAYS with: Magnus PATEL,Claudio Shaw Comment: Follow-up in the office on Sunday In follow-up with Dr. Julian on Sunday Pack wound is ordered Precautions discussed with patient at [id number]
== END 2017-01-13 11:11 | disposition home or self-care (01) | DRG 747 ==
LOC: 2ND 10:58
PROVIDERS: Emergency Medicine; Nurse Practitioner Obstetrics & Gynecology
PROC: 0U9MXZZ Drainage of Vulva, External Approach (ICD-10-PCS; principal; 2017-01-12 11:30)
DX: N76.4 Abscess of vulva (principal)
CPT/HCPCS: J2405; J3370

== ENCOUNTER 2017-01-14 11:47 | Emergency (ER) | payer MEDICAID ==
[~2017-01-14] VITALS: Ht 162.6 cm; Wt 111.6 kg
--- OUTSIDE RECORDS SUMMARY | 2017-01-14 11:57 | External Medical Summary Rpt | CCD ---
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 complet leukocy 017 K/MM3 8 ed emiliana 06:35 count (number /volume ) Automat = 15.2 11.5-17 complet ed 017 % .5 ed erythro 06:35 cyte distrib ution width Red = 4.51 4.2-5.4 complet blood 017 M/mm3 ed cell 06:35 count Blood = 180 142-424 complet platele 017 K/mm3 ed t count 06:35 Automat = 9.8 7.4-10. complet ed 017 fl 4 ed blood 06:35 platele t mean volume laureano [place] % = 5.1 % 1.7-9.3 complet 017 ed 06:35 Absolut = 0.4 0.1-1.0 complet e 017 K/mm3 ed monocyt 06:35 e count Automat = 87.3 82.2-97 complet ed 017 fl .8 ed erythro 06:35 cyte mean corpusc ular v Automat = 32.5 31.8-35 complet ed 017 g/dl .4 ed erythro 06:35 cyte mean corpusc ular h Mean 11-10-2 = 28.3 27-31.2 complet corpusc 017 pg ed ular 06:35 hemoglo bin (MCH) determ Lymphoc = 38.9 10-50.0 complet yte 017 % ed count, 06:35 blood, automat ed Absolut = 2.8 0.7-4.5 complet e 017 K/mm3 ed lymphoc 06:35 yte count Blood = 12.8 12.2-16 complet hemoglo 017 g/dL .2 ed bin 06:35 measure ment (mass/v olum Blood = 39.4 37.0-47 complet hematoc 017 % .0 ed rit 06:35 (volume fractio n) Granulo = 50.6 37.0-80 complet cyte 017 % .0 ed percent 06:35 age Blood = 3.7 1.8-7.8 complet granulo 017 K/mm3 ed cytes 06:35 automat ed count (numb Automat = 5.0 % 0.1-12. complet ed 017 0 ed blood 06:35 eosinop hils/10 0 leukocy t Automat = 0.4 0.0-0.4 complet ed 017 K/mm3 ed blood 06:35 eosinop hil count Baso % = 0.5 % 0.1-2.0 complet 017 ed 06:35 Automat = 0.0 0-0.2 complet ed 017 K/MM3 ed blood 06:35 basophi l count (count/ vo Basic metabolic panel (01-12-2017 06:35) Serum = 138 136-145 complet sodium 017 mmoL/L ed measure 06:35 ment Serum = 3.4 3.5-5.1 complet potassi 017 mmoL/L ed um 06:35 measure ment Serum = 93 74-106 complet or 017 mg/dL ed plasma 06:35 glucose measure ment (mas Estimat = 97 59- complet ed 017 ML/MIN ed glomeru 06:35 lar filtrat ion rate (GF Comment: REFERENCE RANGE: >60 ML/MIN/1.73 SQUARE METERS Comment: If this patient is -[place], then multiply the Comment: result by 1.210. Estimat = 213 50-200 complet ion of 017 ML/MIN ed creatin 06:35 ine renal clearan ce Serum = 0.7 0.55-1. complet or 017 mg/dL 02 ed plasma 06:35 creatin ine measure ment ( Carbon = 28 21.0-32 complet dioxide 017 mmoL/L .0 ed 06:35 measure ment Serum = 104 98-107 complet or 017 mmoL/L ed plasma 06:35 chlorid e measure ment (mo Serum = 8.7 8.5-10. complet or 017 mg/dL 1 ed plasma 06:35 calcium measure ment (mas Serum = 7 7-18 complet or 017 mg/dL ed plasma 06:35 urea nitroge n measure men Comprehensive metabolic panel (01-11-2017 14:20) Serum = 0.9 1.1-1.8 complet or 017 ed plasma 14:20 albumin /globul in mass ra Protein = 8.5 6.4-8.2 complet total 017 gm/dL ed ser/edie 14:20 s ALT = 23 12-78 complet (SGPT) 017 U/L ed ser/edie 14:20 s Serum = 17 15-37 complet or 017 U/L ed plasma 14:20 asparta te aminotr ansfera Serum = 137 136-145 complet sodium 017 mmoL/L ed measure 14:20 ment Serum = 3.4 3.5-5.1 complet potassi 017 mmoL/L ed um 14:20 measure ment Serum = 81 74-106 complet or 017 mg/dL ed plasma 14:20 glucose measure ment (mas Serum = 4.5 1.3-3.2 complet globuli 017 gm/dL ed n 14:20 measure ment (mass/v olume) Estimat = 83 59- complet ed 017 ML/MIN ed glomeru 14:20 lar filtrat ion rate (GF Comment: REFERENCE RANGE: >60 ML/MIN/1.73 SQUARE METERS Comment: If this patient is -Cypriot, then multiply the Comment: result by 1.210. Serum = 0.8 0.55-1. complet or 017 mg/dL 02 ed plasma 14:20 creatin ine measure ment ( Carbon = 30 21.0-32 complet dioxide 017 mmoL/L .0 ed 14:20 measure ment Serum = 100 98-107 complet or 017 mmoL/L ed plasma 14:20 chlorid e measure ment (mo Serum = 9.2 8.5-10. complet or 017 mg/dL 1 ed plasma 14:20 calcium measure ment (mas Serum = 7 7-18 complet or 017 mg/dL ed plasma 14:20 urea nitroge n measure men Serum = 0.3 0.2-1.0 complet or 017 mg/dL ed plasma 14:20 total bilirub in measure m Serum = 85 46-116 complet or 017 U/L ed plasma 14:20 alkalin e phospha tase laureano Serum = 4.0 3.4-5.0 complet or 017 gm/dL ed plasma 14:20 albumin measure ment ([facility] Basic metabolic panel (01-02-2017 11:40) Serum = 3.9 3.5-5.1 complet potassi 017 mmoL/L ed um 11:40 measure ment Serum = 94 74-106 complet or 017 mg/dL ed plasma 11:40 glucose measure ment (mas Estimat = 97 59- complet ed 017 ML/MIN ed glomeru 11:40 lar filtrat ion rate (GF Comment: REFERENCE RANGE: >60 ML/MIN/1.73 SQUARE METERS Comment: If this patient is -[place], then multiply the Comment: result by 1.210. Serum = 0.7 0.55-1. complet or 017 mg/dL 02 ed plasma 11:40 creatin ine measure ment ( Carbon = 27 21.0-32 complet dioxide 017 mmoL/L .0 ed 11:40 measure ment Serum = 103 98-107 complet or 017 mmoL/L ed plasma 11:40 chlorid e measure ment (mo Serum 2 = 8.7 8.5-10. complet or 017 mg/dL 1 ed plasma 11:40 calcium measure ment (mas Serum = 6 7-18 complet or 017 mg/dL ed plasma 11:40 urea nitroge n measure men Serum = 137 136-145 complet sodium 017 mmoL/L ed measure 11:40 ment CBC W DIFF AUTOMATED (12-23-2011 06:31) WBC 12-22-2 8.5 4.60 - complet 012 K/uL 10.20 ed 06:31 RBC 12-22-2 4.37 4.04 - complet 012 M/uL 6.13 ed 06:31 HGB 12-22-2 14.0 12.20 - complet 012 g/dL 18.10 ed 06:31 HCT 12-22-2 41 % 37.70 - complet 012 53.70 ed 06:31 MCV 12-22-2 94.3 fL 80.0 - complet 012 97.0 ed 06:31 MCH 12-22-2 32.0 pg 27.0 - Above complet 012 31.20 high ed 06:31 normal MCHC 12-22-2 34.0 31.80 - complet 012 g/dL 35.40 ed 06:31 RDW 12-22-2 12.1 % 11.60 - complet 012 14.80 ed 06:31 PLT 12-22-2 196 142 - complet 012 K/uL 424 ed 06:31 LY% 10-2 45.9 % 10.0 - complet 012 50.0 ed 06:31 MO% 10-2 5.2 % 0.0 - complet 012 12.0 ed 06:31 NE% 10-20-2 43.4 % 37.0 - complet 012 80.0 ed 06:31 EO% 1020-2 5.00 % 0.00 - complet 012 7.00 ed 06:31 BA% 1020-2 0.50 % 0.00 - complet 012 2.50 ed 06:31 LY# 1020-2 3.89 0.60 - Above complet 012 K/uL 3.40 high ed 06:31 normal MO# 1020-2 0.44 0.00 - complet 012 K/uL 0.90 ed 06:31 NE# 10-20-2 3.68 2.00 - complet 012 K/uL 6.90 ed 06:31 EO# 0.42 0.00 - complet 012 K/uL 0.70 ed 06:31 BA# 0.04 0.00 - complet 012 K/uL 0.20 ed 06:31 Manual NOT complet Diff 012 INDICAT ed 06:31 ED CBC W DIFF AUTOMATED (12-23-2011 06:31) Leukocy 8.5 4.60 - complet emiliana 012 K/uL 10.20 ed [#/volu 06:31 me] in Blood by Automat ed count Erythro 4.37 4.04 - complet cytes 012 M/uL 6.13 ed [#/volu 06:31 me] in Blood by Automat ed count Hemoglo 14.0 12.20 - complet bin 012 g/dL 18.10 ed [Mass/v 06:31 olume] in Blood Hematoc 41 % 37.70 [...] ed 06:31 ED VANCOMYCIN TROUGH (12-21-2011 12:20) VANCOMY 14.0 1.0 - complet SHANDRA TR 012 ug/mL 20.0 ed 12:20 LAST complet 012 DOSE ed 12:20 DATE/TI ME ____ Therape complet 012 utic ed 12:20 range: Trough: complet 012 ed 12:20 0.0-20. 0 ug/mL 10-18-2 Peak: complet 012 25.0-40 ed 12:20 .0 ug/mL 10-18-2 POTENTI complet 012 ALLY ed 12:20 TOXIC RANGE: >60.0 ug/mL VANCOMYCIN TROUGH (12-21-2011 12:20) VANCOMY 10-18-2 14.0 1.0 - complet SHANDRA TR 012 ug/mL 20.0 ed 12:20 12-20-2 LAST complet 012 DOSE ed 12:20 DATE/TI ME ____ -18-2 Therape complet 012 utic ed 12:20 range: -18-2 Trough: complet 012 ed 12:20 0.0-20. 0 ug/mL 12-20-2 Peak: complet 012 25.0-40 ed 12:20 .0 ug/mL 12-20-2 POTENTI complet 012 ALLY ed 12:20 TOXIC RANGE: >60.0 ug/mL CBC W DIFF AUTOMATED (12-21-2011 06:00) WBC 10-18-2 9.3 4.60 - complet 012 K/uL 10.20 ed 06:00 RBC 10-18-2 4.62 4.04 - complet 012 M/uL 6.13 ed 06:00 HGB 10-18-2 14.7 12.20 - complet 012 g/dL 18.10 ed 06:00 HCT 10-18-2 43 % 37.70 - complet 012 53.70 ed 06:00 MCV 10-18-2 93.9 fL 80.0 - complet 012 97.0 ed 06:00 MCH 10-18-2 31.8 pg 27.0 - Above complet 012 31.20 high ed 06:00 normal MCHC 10-18-2 33.9 31.80 - complet 012 g/dL 35.40 ed 06:00 RDW 10-18-2 12.1 % 11.60 - complet 012 14.80 ed 06:00 PLT 10-18-2 209 142 - complet 012 K/uL 424 ed 06:00 LY% 10-18-2 42.8 % 10.0 - complet 012 50.0 ed 06:00 MO% 10-18-2 6.4 % 0.0 - complet 012 12.0 ed 06:00 NE% 10-18-2 44.6 % 37.0 - complet 012 80.0 ed 06:00 EO% 10-18-2 5.70 % 0.00 - complet 012 7.00 ed 06:00 BA% 10-18-2 0.50 % 0.00 - complet 012 2.50 ed 06:00 LY# 10-18-2 3.96 0.60 - Above complet 012 K/uL 3.40 high ed 06:00 normal MO# 10-18-2 0.59 0.00 - complet 012 K/uL 0.90 ed 06:00 NE# 10-18-2 4.13 2.00 - complet 012 K/uL 6.90 ed 06:00 EO# 10-18-2 0.53 0.00 - complet 012 K/uL 0.70 ed 06:00 BA# 10-18-2 0.05 0.00 - complet 012 K/uL 0.20 ed 06:00 Manual 10-18-2 NOT complet Diff 012 INDICAT ed 06:00 ED CBC W DIFF AUTOMATED (12-21-2011 06:00) Leukocy 10-18-2 9.3 4.60 - complet emiliana 012 K/uL 10.20 ed [#/volu 06:00 me] in Blood by Automat ed count Erythro 10-18-2 4.62 4.04 - complet cytes 012 M/uL 6.13 ed [#/volu 06:00 me] in Blood by Automat ed count Hemoglo 10-18-2 14.7 12.20 - complet bin 012 g/dL 18.10 ed [Mass/v 06:00 olume] in Blood Hematoc 10-18-2 43 % 37.70 - complet rit 012 53.70 ed [Volume 06:00 Fractio n] of Blood by Automat ed count Erythro 10-18-2 93.9 fL 80.0 - complet cyte 012 97.0 ed mean 06:00 corpusc ular volume [Entiti c volume] by Automat ed count Erythro 10-18-2 31.8 pg 27.0 - High complet cyte 012 31.20 ed mean 06:00 corpusc ular hemoglo bin [Entiti c mass] by Automat ed count Erythro 10-18-2 33.9 31.80 - complet cyte 012 g/dL [...] ed 06:00 ED VANCOMYCIN TROUGH (12-19-2011 14:30) VANCOMY 10-16-2 8.5 1.0 - complet SHANDRA TR 012 ug/mL 20.0 ed 14:30 10-16-2 LAST complet 012 DOSE ed 14:30 DATE/TI ME ____ 10-16-2 Therape complet 012 utic ed 14:30 range: 10-16-2 Trough: complet 012 ed 14:30 0.0-20. 0 ug/mL 10-16-2 Peak: complet 012 25.0-40 ed 14:30 .0 ug/mL 10-16-2 POTENTI complet 012 ALLY ed 14:30 TOXIC RANGE: >60.0 ug/mL VANCOMYCIN TROUGH (12-19-2011 14:30) VANCOMY 10-16-2 8.5 1.0 - complet SHANDRA TR 012 ug/mL 20.0 ed 14:30 12-18-2 LAST complet 012 DOSE ed 14:30 DATE/TI ME ____ 10-16-2 Therape complet 012 utic ed 14:30 range: 10-16-2 Trough: complet 012 ed 14:30 0.0-20. 0 ug/mL 10-16-2 Peak: complet 012 25.0-40 ed 14:30 .0 ug/mL 10-16-2 POTENTI complet 012 ALLY ed 14:30 TOXIC RANGE: >60.0 ug/mL CBC W DIFF AUTOMATED (12-19-2011 06:10) WBC 10-16-2 9.6 4.60 - complet 012 K/uL 10.20 ed 06:10 RBC 10-16-2 4.38 4.04 - complet 012 M/uL 6.13 ed 06:10 HGB -16-2 14.1 12.20 - complet 012 g/dL 18.10 ed 06:10 HCT 10-16-2 42 % 37.70 - complet 012 53.70 ed 06:10 MCV -16-2 94.7 fL 80.0 - complet 012 97.0 ed 06:10 MCH -16-2 32.2 pg 27.0 - Above complet 012 31.20 high ed 06:10 normal MCHC 16-2 34.0 31.80 - complet 012 g/dL 35.40 ed 06:10 RDW -16-2 12.5 % 11.60 - complet 012 14.80 ed 06:10 PLT 16-2 171 142 - complet 012 K/uL 424 ed 06:10 LY% 10-16-2 38.6 % 10.0 - complet 012 50.0 ed 06:10 MO% 1016-2 6.1 % 0.0 - complet 012 12.0 ed 06:10 NE% 10-16-2 49.9 % 37.0 - complet 012 80.0 ed 06:10 EO% 1016-2 5.10 % 0.00 - complet 012 7.00 ed 06:10 BA% 16-2 0.30 % 0.00 - complet 012 2.50 ed 06:10 LY# 16-2 3.72 0.60 - Above complet 012 K/uL 3.40 high ed 06:10 normal MO# 16-2 0.59 0.00 - complet 012 K/uL 0.90 ed 06:10 NE# 10-16-2 4.81 2.00 - complet 012 K/uL 6.90 ed 06:10 EO# 10-16-2 0.49 0.00 - complet 012 K/uL 0.70 ed 06:10 BA# 10-16-2 0.03 0.00 - complet 012 K/uL 0.20 ed 06:10 Manual NOT complet Diff 012 INDICAT ed 06:10 ED CBC W DIFF AUTOMATED (12-19-2011 06:10) Leukocy 12-18-2 9.6 4.60 - complet emiliana 012 K/uL [...] volume] by Automat ed count Erythro 32.2 pg 27.0 - High complet cyte [...] in Blood by Automat ed count Neutrop 10-16-2 4.81 2.00 - complet hils.ba 012 K/uL [...] 06:10 ED HCG URINE QUAL (12-18-2011 03:52) BETA NEGATIV NL: complet HCG (U) 012 E ATIVE NEGATIV ed 03:52 E NOTE: A complet 012 urine ed 03:52 HCG reporte d as Positiv e, <25 mIU/ml is not a definit ayan diagnos complet 012 is of ed 03:52 pregnan cy. A second specime n may need to be obtaine d 12-17-2 and complet 012 tested ed 03:52 after 48 hours. If waiting 48 hours is not medical ly advisab complet 012 le, the ed 03:52 test result should be confirm ed using a quantit ative 12-17-2 HCG complet 012 serum ed 03:52 test. Choriogonadotropin ( test) [Presence] in Urine (12-18-2011 03:52) BETA NEGATIV NL: complet HCG (U) 012 E NEGATIV ed 03:52 E NOTE: A complet 012 urine ed 03:52 HCG reporte d as Positiv e, <25 mIU/ml is not a definit ayan diagnos complet 012 is of ed 03:52 pregnan cy. A second specime n may need to be obtaine d 10-15-2 and complet 012 tested ed 03:52 after 48 hours. If waiting 48 hours is not medical ly advisab complet 012 le, the ed 03:52 test result should be confirm ed using a quantit ative 10-15-2 HCG complet 012 serum ed 03:52 test. CBC W DIFF AUTOMATED (12-18-2011 02:59) WBC 10-15-2 9.8 4.60 - complet 012 K/uL 10.20 ed 02:59 RBC 10-15-2 4.37 4.04 - complet 012 M/uL 6.13 ed 02:59 HGB 10-15-2 14.3 12.20 - complet 012 g/dL 18.10 ed 02:59 HCT 10-15-2 41 % 37.70 - complet 012 53.70 ed 02:59 MCV 10-15-2 93.8 fL 80.0 - complet 012 97.0 ed 02:59 MCH 10-15-2 32.7 pg 27.0 - Above complet 012 31.20 high ed 02:59 normal MCHC 10-15-2 34.9 31.80 - complet 012 g/dL 35.40 ed 02:59 RDW 10-15-2 12.5 % 11.60 - complet 012 14.80 ed 02:59 PLT 10-15-2 179 142 - complet 012 K/uL 424 ed 02:59 LY% 10-15-2 36.4 % 10.0 - complet 012 50.0 ed 02:59 MO% 10-15-2 6.6 % 0.0 - complet 012 12.0 ed 02:59 NE% 10-15-2 52.0 % 37.0 - complet 012 80.0 ed 02:59 EO% 10-15-2 4.80 % 0.00 - complet 012 7.00 ed 02:59 BA% 10-15-2 0.20 % 0.00 - complet 012 2.50 ed 02:59 LY# 10-15-2 3.58 0.60 - Above complet 012 K/uL 3.40 high ed 02:59 normal MO# 10-15-2 0.65 0.00 - complet 012 K/uL 0.90 ed 02:59 NE# 10-15-2 5.12 2.00 - complet 012 K/uL 6.90 ed 02:59 EO# 10-15-2 0.47 0.00 - complet 012 K/uL 0.70 ed 02:59 BA# 10-15-2 0.02 0.00 - complet 012 K/uL 0.20 ed 02:59 Manual 10-15-2 NOT complet Diff 012 INDICAT ed 02:59 ED BASIC METABOLIC PANEL BMP (10-15-2012 02:59) SODIUM 12-17- 140 136 - complet 012 mmol/L 145 ed 02:59 POTASSI 12-17- 3.6 3.50 - complet UM 012 mmol/L 5.10 ed 02:59 CHLORID 103 98 - complet E 012 mmol/L 107 ed 02:59 TOTAL 12-17- 28 21 - 32 complet CO2 012 mmol/L ed 02:59 ANION 12-17- 13 5 - 15 complet GAP 012 mmol/L ed 02:59 GLUCOSE 99 70 - complet 012 mg/dl 120 ed 02:59 BUN 9 mg/dl 7 - 18 complet 012 ed 02:59 CREATIN 12-17- 0.9 0.60 - complet INE 012 mg/dl 1.30 ed 02:59 AGE 10-15- 27 yrs complet 012 ed 02:59 GFR 60 complet 012 ml/min ed 02:59 CALCIUM 9.4 8.50 - complet 012 mg/dl 10.10 ed 02:59 BUN/CRE 10 6 - 25 complet RATIO 012 ratio ed 02:59 OSMOLAL 278 - 272 - complet ITY 012 295 295 ed 02:59 12-17- GLOMERU complet 012 LAR ed 02:59 FILTRAT ION RATE INTERPR ETATION Normal complet 012 Range: ed 02:59 60 Ml/min/ 1.73 sq meters If complet 012 patient ed 02:59 is Debbie n, multipl y GFR by 1.120. *GFR complet 012 only ed 02:59 applies to adults over the age 18. CULTURE BLOOD (12-18-2011 02:59) complet 012 ed 02:59 COR RECTED REPORT* _CULTUR complet 012 E,BLOOD ed 02:59 _ STATUS FINAL complet 012 ed 02:59 RESULT NO complet 012 GROWTH ed 02:59 @5 D SEND YES complet PHARM/I 012 ed C 02:59 ======= complet 012 ======= ed 02:59 ======= =FOLLOW ING RESULTS REPORTE D IN ERROR== ======= ======= ======= STATUS complet 012 ed 02:59 RESULT complet 012 ed 02:59 CULTURE BLOOD (12-18-2011 02:59) complet 012 ed 02:59 COR RECTED REPORT* [...] NA<-- *Previo usly reporte d in error .0444 .CAM. RESULT~ complet 012 NO~GROW ed 02:59 TH~@2<- - *Previo usly reporte d in error 0444 .CAM. Basic metabolic 2000 panel in Serum or Plasma (12-18-2011 02:59) Sodium 140 136 - complet [Moles/ 012 mmol/L 145 ed volume] 02:59 in Serum or Plasma Potassi 3.6 3.50 - complet um 012 mmol/L 5.10 ed [Moles/ 02:59 volume] in Serum or Plasma Chlorid 12-17- 103 98 - complet e 012 mmol/L 107 ed [Moles/ 02:59 volume] in Serum or Plasma TOTAL 12-17- 28 21 - 32 complet CO2 012 mmol/L ed 02:59 ANION 15-2 13 5 - 15 complet GAP 012 mmol/L ed 02:59 Glucose 15- 99 70 - complet 012 mg/dl 120 ed [Mass/v 02:59 olume] in Serum or Plasma Urea 12-17-2 9 mg/dl 7 - 18 complet nitroge 012 ed n 02:59 [Mass/v olume] in Serum or Plasma Creatin 12-17-2 0.9 0.60 - complet ine 012 mg/dl 1.30 ed [Mass/v 02:59 olume] in Serum or Plasma AGE 10-15-2 26 yrs complet 012 ed 02:59 GFR 12-17- 60 complet 012 ml/min ed 02:59 Calcium 12-17- 9.4 8.50 - complet 012 mg/dl 10.10 ed [Mass/v 02:59 olume] in Serum or Plasma BUN/CRE 12-17- 10 6 - 25 complet RATIO 012 ratio ed 02:59 OSMOLAL 15-2 278 272 - complet ITY 012 -_295 295 ed 02:59 15-2 GLOMERU complet 012 LAR ed 02:59 FILTRAT ION RATE INTERPR ETATION Normal complet 012 Range: ed 02:59 60 Ml/min/ 1.73 sq meters 15-2 If complet 012 patient ed 02:59 is Debbie n, multipl y GFR by 1.120. 15-2 *GFR complet 012 only ed 02:59 applies to adults over the age 18. CBC W DIFF AUTOMATED (12-18-2011 02:59) Leukocy 15-2 9.8 4.60 - complet emiliana 012 K/uL 10.20 ed [#/volu 02:59 me] in Blood by Automat ed count Erythro 12-17-2 4.37 4.04 - complet cytes 012 M/uL 6.13 ed [#/volu 02:59 me] in Blood by Automat ed count Hemoglo 12-17-2 14.3 12.20 - complet bin 012 g/dL [...] ed 02:59 ED CULTURE BLOOD (12-18-2011 02:30) complet 012 ed 02:30 COR RECTED REPORT* _CULTUR complet 012 E,BLOOD ed 02:30 _ STATUS FINAL complet 012 ed 02:30 RESULT NO complet 012 GROWTH ed 02:30 @5 D SEND YES complet PHARM/I 012 ed C 02:30 ======= complet 012 ======= ed 02:30 ======= =FOLLOW ING RESULTS REPORTE D IN ERROR== ======= ======= ======= STATUS complet 012 ed 02:30 RESULT complet 012 ed 02:30 CULTURE BLOOD (12-18-2011 02:30) complet 012 ed 02:30 COR RECTED REPORT* _CULTUR complet 012 E,BLOOD ed 02:30 _ STATUS FINAL complet 012 ed 02:30 RESULT NO complet 012 GROWTH ed 02:30 @5 D SEND YES complet PHARM/I 012 ed C 02:30 ======= complet 012 ======= ed 02:30 ======= =FOLLOW ING RESULTS REPORTE D IN ERROR== ======= ======= ======= STATUS~ complet 012 PRELIMI ed 02:30 NA<-- *Previo usly reporte d in error s10// 12.0443 .CAM. RESULT~ complet 012 NO~GROW ed 02:30 TH~@2<- - *Previo usly reporte d in error s10 12.0443 .CAM.
--- OUTSIDE RECORDS SUMMARY | 2017-01-14 11:57 | External Medical Summary Rpt | CCD ---
Author Author , JENNY ALVARADO Address Unknown Phone [email or web address] Purpose Continuity of Care Document - 12-18-2011 [...] blood 06:35 platele t mean volume laureano [place] % = 5.1 % 1.7-9.3 complet 017 [...] SQUARE METERS Comment: If this patient is -[place], then multiply the Comment: result by 1.210. [...] SQUARE METERS Comment: If this patient is -[place], then multiply the Comment: result by 1.210. [...] gm/dL ed plasma 14:20 albumin measure ment ([facility] Basic metabolic panel (01-02-2017 11:40) Serum = 3.9 3.5-5.1 complet potassi 017 mmoL/L ed um 11:40 measure ment Serum = 94 74-106 complet or 017 mg/dL ed plasma 11:40 glucose measure ment (mas Estimat = 97 59- complet ed 017 ML/MIN ed glomeru 11:40 lar filtrat ion rate (GF Comment: REFERENCE RANGE: >60 ML/MIN/1.73 SQUARE METERS Comment: If this patient is -[place]ue[place], then multiply the Comment: result by 1.210. [...]
--- OUTSIDE RECORDS SUMMARY | 2017-01-14 11:58 | External Medical Summary Rpt | CCD ---
Author Author , JENNY ALVARADO Address Unknown Phone [email or web address] Immunization Name Date Rout CVX Reac Dose [...]
--- OUTSIDE RECORDS SUMMARY | 2017-01-14 11:58 | External Medical Summary Rpt | CCD ---
Author Author , JENNY ALVARADO Address Unknown Phone [email or web address] Immunization Name Date Rout CVX Reac Dose [...]
--- OUTSIDE RECORDS SUMMARY | 2017-01-14 11:59 | External Medical Summary Rpt ---
Author Author FOZIAHUBER Sellers, [employer] Organization [employer] Address Unknown Phone Unavailable Results Vancomycin [Mass/volume] in Serum or Plasma --trough Observa Value Referen Units Interpr Notes Date tion ce etation Range Vancomyci 10.0 - mcg/mL Normal No Jan 12 n 20.0 informati 2016 8:35 [Mass/vol on in PM ume] in source Serum or data Plasma --trough Choriogonadotropin [Units/volume] in Serum or Plasma Observa Value Referen Units Interpr Notes Date tion ce etation Range Choriogon NEG No No No Jan 12 adotropin informati informati informati 2016 6:35 on in on in on in AM [Units/vo source source source lume] in data data data Serum or Plasma CBC W Auto Differential panel in Blood Observa Value Referen Units Interpr Notes Date tion ce etation Range Basophils 0 - 0.2 K/MM3 Normal No Jan 12 informati 2016 6:35 [#/volume on in AM ] in source Blood by data Automated count Basophils 0.1 - 2.0 % Normal No Jan 12 informati 2016 6:35 leukocyte on in AM s in source Blood by data Automated count Eosinophi 0.0 - 0.4 K/mm3 Normal No Jan 12 ls informati 2016 6:35 [#/volume on in AM ] in source Blood by data Automated count Eosinophi 0.1 - % Normal No Jan 12 ls/100 12.0 informati 2016 6:35 leukocyte on in AM s in source Blood by data Automated count Granulocy 1.8 - 7.8 K/mm3 Normal No Jan 12 emiliana informati 2016 6:35 [#/volume on in AM ] in source Blood by data Automated count Granulocy 37.0 - % Normal No Jan 12 emiliana/100 80.0 informati 2016 6:35 leukocyte on in AM s in source Blood by data Automated count Hematocri 37.0 - % Normal No Jan 12 t [Volume 47.0 informati 2017 6:35 on in AM Fraction] source of Blood data Hemoglobi 12.2 - g/dL Normal No Jan 12 n 16.2 informati 2017 6:35 [Mass/vol on in AM ume] in source Blood data Lymphocyt 0.7 - 4.5 K/mm3 Normal No Jan 12 es informati 2016 6:35 [#/volume on in AM ] in source Unspecifi data ed specimen by Automated count Lymphocyt 10 - 50.0 % Normal No Jan 12 es informati 2016 6:35 [#/volume on in AM ] in source Unspecifi data ed specimen by Automated count Erythrocy 27 - 31.2 pg Normal No Jan 12 te mean informati 2017 6:35 corpuscul on in AM ar source hemoglobi data n [Entitic mass] Erythrocy 31.8 - g/dl Normal No Jan 12 te mean 35.4 informati 2016 6:35 corpuscul on in AM ar source hemoglobi data n concentra tion [Mass/vol ume] by Automated count Erythrocy 82.2 - fl Normal No Jan 12 te mean 97.8 informati 2016 6:35 corpuscul on in AM ar volume source [Entitic data volume] by Automated count Monocytes 0.1 - 1.0 K/mm3 Normal No Jan 12 informati 2017 6:35 [#/volume on in AM ] in source Blood by data Automated count Monocytes 1.7 - 9.3 % Normal No Jan 10 /100 informati 2017 6:35 leukocyte on in AM s in source Blood by data Automated count Platelet 7.4 - fl Normal No Jan 12 mean 10.4 informati 2017 6:35 volume on in AM [Entitic source volume] data in Blood by Automated count Platelets 142 - 424 K/mm3 Normal No Jan 12 informati 2017 6:35 [#/volume on in AM ] in source Blood data Erythrocy 4.2 - 5.4 M/mm3 Normal No Jan 12 emiliana informati 2017 6:35 [#/volume on in AM ] in source Amniotic data fluid Erythrocy 11.5 - % Normal No Jan 12 te 17.5 informati 2017 6:35 distribut on in AM ion width source [Entitic data volume] by Automated count Leukocyte 4.8 - K/MM3 Normal No Jan 12 s 10.8 informati 2016 6:35 [#/volume on in AM ] in source Blood data Basic metabolic panel in Blood Observa Value Referen Units Interpr Notes Date tion ce etation Range Urea 7 - 18 mg/dL Normal No Jan 12 nitrogen informati 2016 6:35 [Mass/vol on in AM ume] in source Serum or data Plasma Calcium 8.5 - mg/dL Normal No Jan 12 [Mass/vol 10.1 informati 2016 6:35 ume] in on in AM Serum or source Plasma data Chloride 98 - 107 mmoL/L Normal No Jan 12 [Moles/vo informati 2016 6:35 lume] in on in AM Serum or source Plasma data Carbon 21.0 - mmoL/L Normal No Jan 12 dioxide, 32.0 informati 2016 6:35 total on in AM [Moles/vo source lume] in data Serum or Plasma Creatinin 0.55 - mg/dL Normal No Jan 12 e 1.02 informati 2016 6:35 [Mass/vol on in AM ume] in source Serum or data Plasma Creatinin 50 - 200 ML/MIN High No Jan 12 e renal informati 2016 6:35 clearance on in AM source predicted data by Cockcroft -Gault formula Estimated 59- ML/MIN No REFERENCE Jan 12 informati RANGE: 2017 6:35 glomerula on in >60 AM r source ML/MIN/1. filtratio data 73 SQUARE n rate METERSIf (GF this patient is -A merican, then multiply theresult by 1.210. Glucose 74 - 106 mg/dL Normal No Jan 12 [Mass/vol informati 2016 6:35 ume] in on in AM Serum or source Plasma data Potassium 3.5 - 5.1 mmoL/L Low No Jan 12 informati 2016 6:35 [Moles/vo on in AM lume] in source Serum or data Plasma Sodium 136 - 145 mmoL/L Normal No Jan 12 [Moles/vo informati 2017 6:35 lume] in on in AM Serum or source Plasma data Comprehensive metabolic 2000 panel in Serum or Plasma Observa Value Referen Units Interpr Notes Date ti ce etation Range Albumin/G 1.1 - 1.8 No Low No Jan 11 lobulin informati informati 2016 2:20 [Mass on in on in PM ratio] in source source Serum or data data Plasma Albumin 3.4 - 5.0 gm/dL Normal No Jan 11 [Mass/vol informati 2016 2:20 ume] in on in PM Serum or source Plasma data Alkaline 46 - 116 U/L Normal No Jan 11 phosphata informati 2016 2:20 se on in PM [Enzymati source c data activity/ volume] in Serum or Plasma Bilirubin 0.2 - 1.0 mg/dL Normal No Jan 11 .total informati 2016 2:20 [Mass/vol on in PM ume] in source Serum or data Plasma Urea 7 - 18 mg/dL Normal No Jan 11 nitrogen informati 2016 2:20 [Mass/vol on in PM ume] in source Serum or data Plasma Calcium 8.5 - mg/dL Normal No Jan 11 [Mass/vol 10.1 informati 2016 2:20 ume] in on in PM Serum or source Plasma data Chloride 98 - 107 mmoL/L Normal No Jan 11 [Moles/vo informati 2016 2:20 lume] in on in PM Serum or source Plasma data Carbon 21.0 - mmoL/L Normal No Jan 11 dioxide, 32.0 informati 2016 2:20 total on in PM [Moles/vo source lume] in data Serum or Plasma Creatinin 0.55 - mg/dL Normal No Jan 11 e 1.02 informati 2016 2:20 [Mass/vol on in PM ume] in source Serum or data Plasma Estimated 59- ML/MIN No REFERENCE Jan 11 informati RANGE: 2017 2:20 glomerula on in >60 PM r source ML/MIN/1. filtratio data 73 SQUARE n rate METERSIf (GF this patient is -A merican, then multiply theresult by 1.210. Globulin 1.3 - 3.2 gm/dL High No Jan 11 [Mass/vol informati 2016 2:20 ume] in on in PM Serum source data Glucose 74 - 106 mg/dL Normal No Jan 11 [Mass/vol informati 2016 2:20 ume] in on in PM Serum or source Plasma data Potassium 3.5 - 5.1 mmoL/L Low No Jan 11 informati 2016 2:20 [Moles/vo on in PM lume] in source Serum or data Plasma Sodium 136 - 145 mmoL/L Normal No Jan 11 [Moles/vo informati 2017 2:20 lume] in on in PM Serum or source Plasma data Aspartate 15 - 37 U/L Normal No Jan 11 informati 2016 2:20 aminotran on in PM sferase source [Enzymati data c activity/ volume] in Serum or Plasma Alanine 12 - 78 U/L Normal No Jan 11 aminotran informati 2017 2:20 sferase on in PM [Enzymati source c data activity/ volume] in Serum or Plasma Protein 6.4 - 8.2 gm/dL High No Jan 11 [Mass/vol informati 2016 2:20 ume] in on in PM Serum or source Plasma data Basic metabolic panel in Blood Observa Value [...] - 5.1 mmoL/L Normal No Jan 02 inform2016 [Moles/vo on in 11:40 AM lume] in source Serum or data Plasma Sodium 136 - 145 mmoL/L Normal No Jan 02 [Moles/vo informati 2017 lume] in on in 11:40 AM Serum [...]
[2017-01-14] MEDS ORDERED: LINEZOLID600 MG PO (12:07)
--- NOTE | 2017-01-14 12:12 | Emergency Room Report ---
History of Present Illness Time Seen by 1151 Presenting Problem in Triage Pt arrived:Walked Presenting Problem:PT C/O PAIN IN R UPPER ARM, STATES PAIN IS R/T IV THAT SHE HAD WHEN A ADMITTED R/T I&D OF GENITAL AREA. PT REPORTS L LEG INTERMITTENT NUMBNESS AND PAIN IN LOWER BACK STATES FEELS LIKE THERE IS KNOT IN HER BACK. Onset of symptoms date/time:01/13/17/ or onset unknown for:MEDICAL HX UNKNOWN Treatment Prior to Arrival: ACCESS TECH Provided by: Sepsis Risk Assessment: Temp: 97.8 B/P: 167/109 MAP: 128 Pulse: 105 Resp: 20 Recent fever? N Clinical Suspician of Infection? N Mental Status: 1 - Regular (Normal Baseline) Sepsis Risk:Possible Sepsis Risk Have you (or family members/close friends) recently traveled outside the [place]? N If Yes, where/when: Have you had exposure to infectious disease within the past month? N TB? Other? Specify: 51 years old white female with multiple skin abscesses. She developed a RIGHT labial abscess and was admitted on January 12 and underwent on I and D by Dr. Julian. She was discharged on antibiotics and she did was not given pain medications PER HER. She was supposed to be seen in urgent treatment care center and be given pain medication by Radha. She presented to the ED complaining overall low back pain, RIGHT labial pain, and RIGHT antecubital tenderness and redness from her prior IV site. She denies having fever or chills chest pain shortness of rare nausea vomiting. She has multiple drug ALLERGIES. Source patient, RN notes reviewed, family Exam Limitations no limitations ALLERGIES Coded Allergies: amoxicillin (From AUGMENTIN) (01/12/17) clavulanic acid (From AUGMENTIN) (01/12/17) tramadol (01/12/17) Home Medications Reported Medications Linezolid 600 MG PO DAILY #28 History Medical History General CAD? No Angina: No NM: No Hypertension? No Hyperlipidemia? No CHF? No DVT? No PE? No COPD? No Asthma? Yes Anemia? No GERD? No Gastric ulcers? No GI Bleed? No Hernia? No Thyroid Problems? No Hypothyroidism? No CVA? No Seizures? No Diabetes? No Insulin Dependent: No Insulin Pump: No Home FSBS? No Renal Insuffiency? No End Stage Renal Disease? No UTI? No Stones? No BPH? No GB Disease: Yes Nephritic Syndrome? No Asplenia? No Hepatitis? No Sickle Cell Disease? No Arthritis? No Migraines? No Cataracts? No Glaucoma? No MRSA? Yes HIV? No TB? No Anxiety? No Depression? No Cancer? No More? 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 Respiratory no symptoms reported Cardiovascular no symptoms reported Gastrointestinal no symptoms reported Genitourinary see HPI (right LABIAL TENDERNESS). Musculoskeletal see HPI, back pain Skin see HPI, rash (right ANTECUBITAL AREA) Psychiatric/Neurological no symptoms reported Physical Exam Vital Signs Vital Signs Date Time Temp Pulse Resp B/P Pulse O2 O2 Flow FiO2 Ox Delivery Rate 01/14 1320 89 20 116/84 98 01/14 1156 97.8 105 20 167/109 100 - WBC >12,000 or <4,000 or 10% bands? 2 or more SIRS Criteria Met? B/P:167/109 MAP:128 Creatinine >2.0? UA output<0.5ml/kg/hr for 2 hrs? Platelet count >100,000? Lactate >2.0mmol/1? INR >1.2 or PTT > than 60 sec? Evidence of Organ Dysfunction? Provider documented clinical suspician of infection? N Sepsis Criteria Count: 2 Sepsis Risk: Possible Sepsis Risk General Appearance normal appearance, WD/WN Eye Exam - bilateral eye normal exam, bilateral eye PERRL, bilateral eye EOMI Ear, Nose, Throat hearing grossly normal, normal ENT inspection Neck normal inspection, non-tender, supple, full range of motion Respiratory Status Yes: trachea midline, chest symmetrical, non tender chest. No: respiratory distress. Lung Sounds bilateral: normal breath sounds, lungs clear. Cardiovascular normal exam, regular rate/rhythm, no peripheral edema, no gallop, no JVD, no murmur, no rub, normal peripheral pulses Gastrointestinal normal bowel sounds, normal exam, non tender, soft, no organomegaly Back no CVA tenderness, no vertebral tenderness, TENDERNESS OVER THE SACRUM Extremities MILD ERYTHEMA AND TENDERNESS OVER THE LATERAL ASPECT OF THE right ANTECUBITAL FOSSA Pelvic TENDER AND MILDLY SWOLLEN THE right LABIAL FOLD, NO BLOODY DISCHARGE. 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 No Results/Orders Laboratory Tests 01/14/17 1225: ESR 50 H 01/14/17 1225: Sodium 137, Potassium 3.7, Chloride 102, Carbon Dioxide 23, BUN 5 L, Creatinine 0.8, Estimated Creat Clear 178, Estimated GFR (MDRD) 83, Glucose 107 H, Calcium 9.3, D-Dimer 287, WBC 12.3 H, RBC 4.83, Hgb 13.3, Hct 41.7, MCV 86.2, RDW 15.3, Plt Count 207, MPV 10.2, Gran % 66.8, Gran # 8.2 H, Lymphocytes % 25.5, Monocytes % 3.0, Eosinophils % 4.2, Basophils % 0.5, Lymphocytes # 3.2, Monocytes # 0.4, Eosinophils # 0.5 H, Basophils # 0.1, PUBS MCHC 32.0, MCH 27.6 Orders Procedure Date/time Status VENOUS UPPER EXT RT 01/14 1253 Active LUMBAR SPINE-2 TO 3 VIEWS 01/14 1216 Active SED RATE 01/14 1216 Complete D-DIMER 01/14 1206 Complete CBC WITH AUTO DIFF 01/14 1206 Complete BASIC METABOLIC PROFILE 01/14 1206 Complete XRAY/CT/US XRAY/CT/US XRAY T-spine XR interpretation by reviewed by me Xray Results normal/NAD, no fracture seen Departure Departure Time of Disposition 1327 Disposition DC Home or Self Care(routine) Clinical Impression Primary Impression: Abscess of right genital labia Secondary Impressions: Low back pain, Thrombophlebitis arm Condition STABLE Referrals Arnold Wei APRN (Family) Additional Instructions I REVIEWED HER C& S AND discussed this case with Radha, SHE FAILED BACTRIM LAST MONTH AND VAN/ZYVOX IS HER BEST OPTION. 1- THE PATIETN WAS ADVISED FOR WARM COMPRESSES ON R FOREARM AND LUMABR RESION. 2- CONTINUE ZYVOX. 3- ADDED ROBAXIN 4- RADHA WILL GIVE HER PAIN MEDICINE PER DR HAYWOOD UNTILL THE OFFICE IN THE AM . 5- FOLLOW UP WITH DR BARBOSA IN AM Discharge Counseling Counseled pt/family regarding diagnosis, test results, medications/RX, home care, follow up needs Prescriptions Current Visit Scripts Methocarbamol (Robaxin 750MG) 750 MG PO Q8HP PRN BACK PAIN #21 TAB ED Critical Care Critical Care No If Critical Care minutes are documented, the time involved in the performance of seperately reportable procedures was not counted toward critical care time documented. I directly delivered medical care to this critically ill and/or injured patient. Timely evaluation and treatment was necessary to address the significant organ system(s) dysfunction present in this patient. at 1330
[2017-01-14 12:39] LABS: HEMOGLOBIN 13.3 g/dL (12.2-16.2); LYMPH # 3.2 K/mm3 (0.7-4.5); LYMPH % 25.5 % (10-50.0)
[2017-01-14] MEDS ORDERED: ROBAXIN-750750 MG PO (13:30)
[2017-01-14 13:40] VITALS: BP 129/73
--- NOTE | 2017-01-14 14:46 | RADIOLOGY REPORT PS360 ---
EXAM: LUMBAR SPINE-2 TO 3 VIEWS HISTORY: Low back pain LBP NON TRAUMATIC COMPARISON: None FINDINGS: Normal alignment. No fracture or dislocation. No lytic or blastic change. No significant degenerative change. The disc spaces are preserved. There is minimal intraosteophyte formation at T12 IMPRESSION: 1. Negative lumbar spine. 2. Minimal spondylosis at T12
== END 2017-01-14 13:46 | disposition home or self-care (01) ==
LOC: UTC 11:47 → ER 11:51
PROVIDERS: Emergency Medicine
DX: N76.4 Abscess of vulva (principal); M54.5 Low back pain; T80.1XXA Vascular complications following infusion, transfusion and therapeutic injection, initial encounter; I80.8 Phlebitis and thrombophlebitis of other sites; Y82.8 Other medical devices associated with adverse incidents; Y92.9 Unspecified place or not applicable; Z86.14 Personal history of Methicillin resistant Staphylococcus aureus infection; F17.210 Nicotine dependence, cigarettes, uncomplicated; J45.909 Unspecified asthma, uncomplicated; Z88.1 Allergy status to other antibiotic agents; Z88.5 Allergy status to narcotic agent; Z79.899 Other long term (current) drug therapy